=== PATIENT | male | born 1955 | race Two or more races ===

== ENCOUNTER → 2019-10-21 | Emergency (ER) | payer OTHER ==
[~2019-10-21] VITALS: Ht 162.6 cm; Wt 77.1 kg
[~2019-10-21] MED LIST: LIDOCAINE 1% HCL (LOCAL ANESTH.) INJ 20ML MDV IJ ONE; TETANUS-DIPTH-ACEL PERTUSSIS 0.5ML SYR Tdap IM ONE
[2019-10-21 09:14] VITALS: BP 154/82
== END | disposition home or self-care (01) ==
LOC: ER 08:46
DX: S61.213A Laceration without foreign body of left middle finger without damage to nail, initial encounter (principal); W29.8XXA Contact with other powered hand tools and household machinery, initial encounter; Y93.89 Activity, other specified; Y92.89 Other specified places as the place of occurrence of the external cause; Y99.8 Other external cause status
CPT/HCPCS: 12001; 90471; 90715; 99283; J2001

== ENCOUNTER 2020-03-09 12:47 | Inpatient (IN) | payer MEDICARE, OTHER ==
[~2020-03-09] VITALS: Ht 162.6 cm; Wt 62.2 kg
[2020-03-09] MEDS ORDERED: ACETAMINOPHEN 325 MG TAB PO ONE (13:30)
[2020-03-09] MEDS ORDERED: DexAMETHasone SOD PHOS 10MG/1ML VIAL INJ IV ONE (14:30)
[2020-03-09] MEDS ORDERED: SODIUM CHLORIDE 0.9% 500 ML IV ONE (14:30)
[2020-03-09] MEDS ORDERED: DOXYCYCLINE 100MG/250ML 250 ML IV ONE (14:30)
[2020-03-09] MEDS ORDERED: AZITHROMYCIN 500MG/ 250ML 250 ML IV ONE ×2 (14:45)
[2020-03-09 16:17] LABS: Basophils # (auto) 0 10 ^3/uL (0-0.2); Basophils % (auto) 0.2 % (0.0-2.0); Eosinophils # (auto) 0 10 ^3/uL (0-0.8); Hematocrit 40.8 % (41.0-53.0); Hemoglobin 14.1 g/dL (13.5-17.5); Lymphocytes % (auto) 16.4 % (10.0-50.0); Mean Corpuscular Hgb Conc. 34.4 g/dL (32.0-36.0); Mean Corpuscular Volume 95.8 fL (80.0-100.0); Monocytes # (auto) 0.5 10 ^3/uL (0-1.3); Monocytes % (auto) 7.8 % (0.0-12.0); Neutrophils # (auto) 4.6 10 ^3/uL (1.6-8.6); Neutrophils % (auto) 75.6 % (37.0-80.0); Nucleated Red Blood Cells % 0.1 %; Red Blood Cells 4.27 10^6/uL (4.5-5.90); Red Cell Distribution Width 13.3 % (11.8-14.3)
[2020-03-09 16:26] LABS: Alanine Aminotransferase 35 U/L (16-61); Albumin 3.1 g/dL (3.4-5.0); Anion Gap 9 (5-15); Aspartate Aminotransferase 47 U/L (15-37); Blood Urea Nitrogen 22 mg/dL (7-18); Calcium 8.1 mg/dL (8.5-10.1); Carbon Dioxide 21 mmol/L (21-32); Chloride 103 mmol/L (98-107); GFR African American 91 mL/min; GFR Non-African American 75 mL/min; Glucose 97 mg/dL (74-106); Magnesium 2.2 mg/dL (1.6-2.6); Potassium 3.9 mmol/L (3.5-5.1); Sodium 133 mmol/L (136-145)
[2020-03-09 16:31] LABS: Alkaline Phosphatase 101 U/L (45-117); Bilirubin, Total 0.4 mg/dL (0.2-1.0); Total Protein 7.5 g/dL (6.4-8.2)
[2020-03-09 17:08] LABS: INR 0.97 (0.9-1.15); Partial Thromboplastin Time 29.5 sec (23.0-31.2)
[2020-03-09] MEDS ORDERED: SODIUM CHLORIDE 0.9% 1,000 ML IV SCH (17:15)
[2020-03-09 18:00] LABS: Urine Bacteria FEW /hpf (None Seen); Urine Blood Negative /uL (Negative); Urine Hyaline Cast FEW /lpf (0 - 2); Urine Mucus FEW (None Seen); Urine Specific Gravity 1.011 (1.001-1.035); Urine WBC 1 /hpf (0 - 3)
[2020-03-09] MEDS: BUDESONIDE (INHALATION) 180 MCG IH IN SCH (22:00)
[2020-03-09] MEDS: ALBUTEROL SULF HFA 90MCG INH 200DOSE IN SCH (22:00)
[2020-03-09] MEDS ORDERED: DOXYCYCLINE 100 MG TAB/CAP PO SCH (22:00)
[2020-03-10 03:16] VITALS: BP 121/66
[2020-03-10] MEDS: ALBUTEROL SULF HFA 90MCG INH 200DOSE IN SCH ×3 (06:17→22:17)
[2020-03-10 06:38] LABS: Basophils # (auto) 0.1 10 ^3/uL (0-0.2); Basophils % (auto) 1.4 % (0.0-2.0); Eosinophils # (auto) 0 10 ^3/uL (0-0.8); Hematocrit 42.6 % (41.0-53.0); Hemoglobin 14.6 g/dL (13.5-17.5); Lymphocytes # (auto) 0.6 10 ^3/uL (0.4-5.4); Lymphocytes % (auto) 13.6 % (10.0-50.0); Mean Corpuscular Hemoglobin 33.1 pg (28.0-32.0); Mean Corpuscular Hgb Conc. 34.3 g/dL (32.0-36.0); Mean Corpuscular Volume 96.7 fL (80.0-100.0); Monocytes # (auto) 0.3 10 ^3/uL (0-1.3); Neutrophils # (auto) 3.4 10 ^3/uL (1.6-8.6); Red Blood Cells 4.41 10^6/uL (4.5-5.90); Red Cell Distribution Width 13.1 % (11.8-14.3); White Blood Cell 4.4 10^3/uL (4.4-10.8)
[2020-03-10 07:23] LABS: Albumin 2.9 g/dL (3.4-5.0); BUN/Creatinine Ratio 25.3; Bilirubin, Total 0.4 mg/dL (0.2-1.0); Calcium 8.8 mg/dL (8.5-10.1); Magnesium 2.5 mg/dL (1.6-2.6); Potassium 4.3 mmol/L (3.5-5.1); Total Protein 7.6 g/dL (6.4-8.2)
[2020-03-10] MEDS ORDERED: ENOXAPARIN SOD 40 MG/0.4 ML SYRINGE SC SCH (10:00)
[2020-03-10] MEDS: BUDESONIDE (INHALATION) 180 MCG IH IN SCH ×2 (10:10→22:18)
[2020-03-10] MEDS: DexAMETHasone SOD PHOS 10MG/1ML VIAL INJ IV SCH (11:25)
[2020-03-10] MEDS: CHOLECALCIFEROL (VITD3) 2,000 UNIT CAP/TAB PO SCH (11:28)
[2020-03-10] MEDS: FUROSEMIDE 20 MG/2 ML VIAL IV SCH (11:28)
[2020-03-10] MEDS: ASCORBIC ACID 1,000 MG TAB PO SCH (11:28)
[2020-03-10] MEDS: ZINC SULFATE 220mg CAP or TAB PO SCH (11:28)
[2020-03-10] MEDS ORDERED: DEXTROSE (50%) 50ML SYRG IV PRN (11:30)
[2020-03-10] MEDS ORDERED: ENOXAPARIN SOD 100 MG/1 ML SYRINGE SC ONE (11:30)
[2020-03-10] MEDS ORDERED: POTASSIUM CHL 10 Meq TABLET PO ONE (11:30)
[2020-03-10] MEDS ORDERED: FUROSEMIDE 20 MG/2 ML VIAL IV ONE (11:30)
[2020-03-10] MEDS: PIPERACILLIN-TAZOB 3.375GM 100 ML IV SCH ×2 (13:01→18:31)
[2020-03-10] MEDS: ACCU-CHEK COMFORT CURVE STRIP VI SCH ×3 (13:31→22:15)
[2020-03-10] MEDS: InsuLIN REG 1unit/0.01ml Soln (100units/ml) SC SCH ×3 (13:32→22:15)
[2020-03-10] MEDS ORDERED: IOHEXOL 350 MG/ML 100ML IJ ONE ×2 (15:41→23:46)
[2020-03-10 22:13] VITALS: BP 115/59
[2020-03-10] MEDS: ENOXAPARIN SOD 80 MG/0.8ML SYRINGE SC SCH (22:15)
[2020-03-10 22:28] VITALS: BP 108/57
[2020-03-10 23:28] VITALS: BP 111/58
[2020-03-11] MEDS: HYDROcodone-ACET 5/325MG TAB PO PRN ×2 (03:46→06:45)
[2020-03-11] MEDS: ALBUTEROL SULF HFA 90MCG INH 200DOSE IN SCH ×2 (06:00→14:00)
[2020-03-11] MEDS: PIPERACILLIN-TAZOB 3.375GM 100 ML IV SCH ×5 (06:30→23:54)
[2020-03-11] MEDS: InsuLIN REG 1unit/0.01ml Soln (100units/ml) SC SCH ×4 (07:00→22:00)
[2020-03-11] MEDS: ACCU-CHEK COMFORT CURVE STRIP VI SCH ×4 (07:15→23:53)
[2020-03-11 07:16] LABS: Potassium 4.3 mmol/L (3.5-5.1)
[2020-03-11 07:34] LABS: Albumin 2.9 g/dL (3.4-5.0); BUN/Creatinine Ratio 28.6; Bilirubin, Total 0.5 mg/dL (0.2-1.0); Calcium 8.6 mg/dL (8.5-10.1); Magnesium 2.4 mg/dL (1.6-2.6); Total Protein 7.4 g/dL (6.4-8.2)
[2020-03-11] MEDS: BUDESONIDE (INHALATION) 180 MCG IH IN SCH ×2 (10:00→22:00)
[2020-03-11] MEDS: FUROSEMIDE 20 MG/2 ML VIAL IV SCH (14:20)
[2020-03-11] MEDS: DexAMETHasone SOD PHOS 10MG/1ML VIAL INJ IV SCH (14:20)
[2020-03-11] MEDS: POTASSIUM CHL 10 Meq TABLET PO SCH (14:20)
[2020-03-11] MEDS: ZINC SULFATE 220mg CAP or TAB PO SCH (14:20)
[2020-03-11] MEDS: ASCORBIC ACID 1,000 MG TAB PO SCH (14:20)
[2020-03-11] MEDS: CHOLECALCIFEROL (VITD3) 2,000 UNIT CAP/TAB PO SCH (14:20)
[2020-03-11] MEDS: ENOXAPARIN SOD 80 MG/0.8ML SYRINGE SC SCH ×2 (14:21→23:53)
[2020-03-11 23:00] VITALS: BP 109/66
[2020-03-12] MEDS: ALBUTEROL SULF HFA 90MCG INH 200DOSE IN SCH ×3 (05:57→23:06)
[2020-03-12] MEDS: BUDESONIDE (INHALATION) 180 MCG IH IN SCH ×2 (05:58→23:06)
[2020-03-12 06:00] VITALS: BP 128/64
[2020-03-12] MEDS: InsuLIN REG 1unit/0.01ml Soln (100units/ml) SC SCH ×4 (06:11→22:00)
[2020-03-12] MEDS: PIPERACILLIN-TAZOB 3.375GM 100 ML IV SCH ×2 (06:11→12:21)
[2020-03-12] MEDS: ACCU-CHEK COMFORT CURVE STRIP VI SCH ×4 (06:12→22:24)
[2020-03-12] MEDS ORDERED: ALBUAER3 IN (08:17)
[2020-03-12] MEDS ORDERED: BUDE1AER5 IN (08:17)
[2020-03-12 08:27] LABS: Albumin 2.7 g/dL (3.4-5.0); BUN/Creatinine Ratio 38.8; Calcium 8.4 mg/dL (8.5-10.1); Potassium 3.7 mmol/L (3.5-5.1)
[2020-03-12 08:32] LABS: Bilirubin, Total 0.6 mg/dL (0.2-1.0); Total Protein 7.3 g/dL (6.4-8.2)
[2020-03-12] MEDS: ZINC SULFATE 220mg CAP or TAB PO SCH (09:02)
[2020-03-12] MEDS: DexAMETHasone SOD PHOS 10MG/1ML VIAL INJ IV SCH (09:02)
[2020-03-12] MEDS: CHOLECALCIFEROL (VITD3) 2,000 UNIT CAP/TAB PO SCH (09:02)
[2020-03-12] MEDS: ENOXAPARIN SOD 80 MG/0.8ML SYRINGE SC SCH (09:03)
[2020-03-12] MEDS: ASCORBIC ACID 1,000 MG TAB PO SCH (09:03)
[2020-03-12] MEDS: POTASSIUM CHL 10 Meq TABLET PO SCH (09:03)
[2020-03-12] MEDS: FUROSEMIDE 20 MG/2 ML VIAL IV SCH (09:04)
[2020-03-12] MEDS: ACETAMINOPHEN 500 MG TAB PO PRN ×2 (09:12→21:00)
[2020-03-12 09:18] VITALS: BP 118/70
[2020-03-12 13:00] VITALS: BP 107/67
[2020-03-12] MEDS: HYDROcodone-ACET 5/325MG TAB PO PRN (16:06)
[2020-03-12] MEDS: guaiFENesin-DM 100/10mg/5ml SYR PO PRN ×2 (16:07→21:00)
[2020-03-12 16:45] VITALS: BP 114/63
[2020-03-12] MEDS ORDERED: REMDESIVIR 200 MG in NS 210ml LOADING DOSE ADULT IV ONE (17:00)
[2020-03-12 18:28] VITALS: BP 118/70
[2020-03-12 22:00] VITALS: BP 118/66
[2020-03-13] MEDS: guaiFENesin-DM 100/10mg/5ml SYR PO PRN ×2 (03:11→08:39)
[2020-03-13] MEDS: ACETAMINOPHEN 500 MG TAB PO PRN (05:02)
[2020-03-13] MEDS: ACCU-CHEK COMFORT CURVE STRIP VI SCH ×4 (06:42→21:50)
[2020-03-13] MEDS: InsuLIN REG 1unit/0.01ml Soln (100units/ml) SC SCH ×4 (06:42→21:50)
[2020-03-13 06:43] VITALS: BP 116/59
[2020-03-13] MEDS: ALBUTEROL SULF HFA 90MCG INH 200DOSE IN SCH ×3 (07:55→21:31)
[2020-03-13] MEDS: BUDESONIDE (INHALATION) 180 MCG IH IN SCH ×2 (07:56→21:31)
[2020-03-13 09:23] VITALS: BP 111/79
[2020-03-13] MEDS ORDERED: ACETAMINOPHEN 325 MG TAB PO PRN (10:00)
[2020-03-13] MEDS: levoFLOXacin 750MG 150 ML IV SCH (10:17)
[2020-03-13] MEDS: FUROSEMIDE 20 MG/2 ML VIAL IV SCH (10:18)
[2020-03-13] MEDS: CHOLECALCIFEROL (VITD3) 2,000 UNIT CAP/TAB PO SCH (10:18)
[2020-03-13] MEDS: ENOXAPARIN SOD 40 MG/0.4 ML SYRINGE SC SCH (10:18)
[2020-03-13] MEDS: POTASSIUM CHL 10 Meq TABLET PO SCH (10:18)
[2020-03-13] MEDS: ASCORBIC ACID 1,000 MG TAB PO SCH (10:19)
[2020-03-13] MEDS: MORPHINE SULFATE INJECTION 2 MG/ML SYRG IV PRN ×2 (10:19→20:00)
[2020-03-13] MEDS: ZINC SULFATE 220mg CAP or TAB PO SCH (10:19)
[2020-03-13] MEDS: DexAMETHasone SOD PHOS 10MG/1ML VIAL INJ IV SCH (10:20)
[2020-03-13 10:21] LABS: Basophils # (auto) 0 10 ^3/uL (0-0.2); Basophils % (auto) 0.1 % (0.0-2.0); Eosinophils # (auto) 0 10 ^3/uL (0-0.8); Hematocrit 40.2 % (41.0-53.0); Hemoglobin 13.4 g/dL (13.5-17.5); Lymphocytes # (auto) 0.8 10 ^3/uL (0.4-5.4); Lymphocytes % (auto) 7.1 % (10.0-50.0); Mean Corpuscular Hemoglobin 32.2 pg (28.0-32.0); Mean Corpuscular Hgb Conc. 33.4 g/dL (32.0-36.0); Mean Corpuscular Volume 96.5 fL (80.0-100.0); Monocytes # (auto) 0.4 10 ^3/uL (0-1.3); Monocytes % (auto) 3.3 % (0.0-12.0); Neutrophils # (auto) 9.5 10 ^3/uL (1.6-8.6); Neutrophils % (auto) 89.5 % (37.0-80.0); Red Blood Cells 4.17 10^6/uL (4.5-5.90); Red Cell Distribution Width 13.5 % (11.8-14.3); White Blood Cell 10.6 10^3/uL (4.4-10.8)
[2020-03-13 10:37] LABS: Calcium 8.6 mg/dL (8.5-10.1); Potassium 3.7 mmol/L (3.5-5.1)
[2020-03-13 10:43] LABS: Albumin 2.8 g/dL (3.4-5.0); Bilirubin, Total 0.6 mg/dL (0.2-1.0); Total Protein 7.2 g/dL (6.4-8.2)
[2020-03-13 12:14] VITALS: BP 116/64
[2020-03-13] MEDS: REMDESIVIR 100mg in NS 230ml DAILYx4DAYS (NO VENT) IV SCH (17:01)
[2020-03-13] MEDS: guaiFENesin-CODEINE Liq 5 ML UD PO PRN (19:59)
[2020-03-13 20:00] VITALS: BP 120/65
[2020-03-14] MEDS: guaiFENesin-CODEINE Liq 5 ML UD PO PRN ×4 (02:19→20:49)
[2020-03-14 03:32] VITALS: BP 120/65
[2020-03-14 05:00] VITALS: BP 120/51
[2020-03-14] MEDS: ALBUTEROL SULF HFA 90MCG INH 200DOSE IN SCH ×3 (06:06→21:58)
[2020-03-14] MEDS: BUDESONIDE (INHALATION) 180 MCG IH IN SCH ×2 (06:06→21:58)
[2020-03-14] MEDS: ACCU-CHEK COMFORT CURVE STRIP VI SCH (06:17)
[2020-03-14] MEDS: InsuLIN REG 1unit/0.01ml Soln (100units/ml) SC SCH (06:17)
[2020-03-14] MEDS: HYDROcodone-ACET 5/325MG TAB PO PRN ×4 (06:18→20:09)
[2020-03-14 06:20] LABS: Basophils # (auto) 0 10 ^3/uL (0-0.2); Basophils % (auto) 0.3 % (0.0-2.0); Eosinophils # (auto) 0 10 ^3/uL (0-0.8); Hematocrit 42.9 % (41.0-53.0); Hemoglobin 14.3 g/dL (13.5-17.5); Lymphocytes # (auto) 0.6 10 ^3/uL (0.4-5.4); Lymphocytes % (auto) 5.5 % (10.0-50.0); Mean Corpuscular Hemoglobin 32.1 pg (28.0-32.0); Mean Corpuscular Hgb Conc. 33.4 g/dL (32.0-36.0); Mean Corpuscular Volume 96.2 fL (80.0-100.0); Monocytes # (auto) 0.4 10 ^3/uL (0-1.3); Neutrophils # (auto) 9.4 10 ^3/uL (1.6-8.6); Neutrophils % (auto) 90.2 % (37.0-80.0); Red Blood Cells 4.46 10^6/uL (4.5-5.90); Red Cell Distribution Width 13.1 % (11.8-14.3); White Blood Cell 10.4 10^3/uL (4.4-10.8)
[2020-03-14 06:51] LABS: Albumin 2.9 g/dL (3.4-5.0); BUN/Creatinine Ratio 38.5; Bilirubin, Total 0.8 mg/dL (0.2-1.0); Calcium 8.9 mg/dL (8.5-10.1); Total Protein 7.5 g/dL (6.4-8.2)
[2020-03-14 08:00] VITALS: BP 111/79
[2020-03-14 09:00] VITALS: BP 114/67
[2020-03-14] MEDS: DexAMETHasone SOD PHOS 10MG/1ML VIAL INJ IV SCH (09:53)
[2020-03-14] MEDS: FUROSEMIDE 20 MG/2 ML VIAL IV SCH (09:55)
[2020-03-14] MEDS: ZINC SULFATE 220mg CAP or TAB PO SCH (09:56)
[2020-03-14] MEDS: ASCORBIC ACID 1,000 MG TAB PO SCH (09:56)
[2020-03-14] MEDS: levoFLOXacin 750MG 150 ML IV SCH (09:56)
[2020-03-14] MEDS: POTASSIUM CHL 10 Meq TABLET PO SCH (09:56)
[2020-03-14] MEDS: CHOLECALCIFEROL (VITD3) 2,000 UNIT CAP/TAB PO SCH (09:56)
[2020-03-14] MEDS: ENOXAPARIN SOD 40 MG/0.4 ML SYRINGE SC SCH (09:57)
[2020-03-14 17:00] VITALS: BP 113/72
[2020-03-14] MEDS: REMDESIVIR 100mg in NS 230ml DAILYx4DAYS (NO VENT) IV SCH (17:00)
[2020-03-14 21:35] VITALS: BP 120/68
[2020-03-15] VITALS (7 sets, daily range): BP systolic 89–127; BP diastolic 52–103
[2020-03-15] MEDS: LORazepam 2MG/ML-1ML VIAL IV PRN ×3 (01:08→21:31)
[2020-03-15] MEDS: ALBUTEROL SULF HFA 90MCG INH 200DOSE IN SCH ×3 (07:10→22:09)
[2020-03-15] MEDS: BUDESONIDE (INHALATION) 180 MCG IH IN SCH ×2 (07:10→22:09)
[2020-03-15] MEDS: ASCORBIC ACID 1,000 MG TAB PO SCH (10:00)
[2020-03-15] MEDS: POTASSIUM CHL 10 Meq TABLET PO SCH (10:00)
[2020-03-15] MEDS: CHOLECALCIFEROL (VITD3) 2,000 UNIT CAP/TAB PO SCH (10:00)
[2020-03-15] MEDS: DexAMETHasone SOD PHOS 10MG/1ML VIAL INJ IV SCH (10:06)
[2020-03-15] MEDS: FUROSEMIDE 20 MG/2 ML VIAL IV SCH (10:06)
[2020-03-15] MEDS: levoFLOXacin 750MG 150 ML IV SCH (10:06)
[2020-03-15] MEDS: ZINC SULFATE 220mg CAP or TAB PO SCH (10:07)
[2020-03-15] MEDS: ENOXAPARIN SOD 40 MG/0.4 ML SYRINGE SC SCH (10:07)
[2020-03-15] MEDS: guaiFENesin-CODEINE Liq 5 ML UD PO PRN ×2 (10:16→15:56)
[2020-03-15] MEDS: HYDROcodone-ACET 5/325MG TAB PO PRN ×2 (10:16→15:56)
[2020-03-15] MEDS: PIPERACILLIN-TAZOB 3.375GM 100 ML IV SCH ×2 (12:00→18:00)
[2020-03-15] MEDS ORDERED: ENOXAPARIN SOD 30 MG/0.3 ML SYRINGE SC ONE (12:15)
[2020-03-15] MEDS: REMDESIVIR 100mg in NS 230ml DAILYx4DAYS (NO VENT) IV SCH (17:19)
[2020-03-15] MEDS: ENOXAPARIN SOD 80 MG/0.8ML SYRINGE SC SCH (21:30)
[2020-03-16] VITALS (55 sets, daily range): BP systolic 57–149; BP diastolic 36–80
[2020-03-16] MEDS: guaiFENesin-CODEINE Liq 5 ML UD PO PRN (00:05)
[2020-03-16] MEDS: PIPERACILLIN-TAZOB 3.375GM 100 ML IV SCH ×4 (00:06→17:46)
[2020-03-16] MEDS: LORazepam 2MG/ML-1ML VIAL IV PRN (03:02)
[2020-03-16] MEDS: MORPHINE SULFATE INJECTION 2 MG/ML SYRG IV PRN (05:19)
[2020-03-16] MEDS: ALBUTEROL SULF HFA 90MCG INH 200DOSE IN SCH (06:00)
[2020-03-16] MEDS: MIDAZOLAM DRIP 50 mg/50mL 50 ML IV SCH ×3 (06:15→21:45)
[2020-03-16] MEDS: PROPOFOL 100 ML IV SCH ×3 (06:20→22:55)
[2020-03-16] MEDS ORDERED: PROPOFOL 100 ML IV ONE ×2 (06:20)
[2020-03-16] MEDS ORDERED: NOREPINEPHRINE 8 MG/250ML KIT 250 ML IV ONE (06:38)
[2020-03-16] MEDS: NOREPINEPHRINE 8 MG/250ML KIT 250 ML IV SCH (06:45)
[2020-03-16 07:51] LABS: Basophils # (auto) 0 10 ^3/uL (0-0.2); Basophils % (auto) 0.3 % (0.0-2.0); Eosinophils # (auto) 0 10 ^3/uL (0-0.8); Eosinophils % (auto) 0.1 % (0.0-7.0); Hematocrit 45.2 % (41.0-53.0); Hemoglobin 15.2 g/dL (13.5-17.5); Lymphocytes # (auto) 0.5 10 ^3/uL (0.4-5.4); Mean Corpuscular Hgb Conc. 33.6 g/dL (32.0-36.0); Monocytes # (auto) 0.2 10 ^3/uL (0-1.3); Monocytes % (auto) 2.8 % (0.0-12.0); Neutrophils # (auto) 7.9 10 ^3/uL (1.6-8.6); Neutrophils % (auto) 90.8 % (37.0-80.0); Red Blood Cells 4.62 10^6/uL (4.5-5.90); Red Cell Distribution Width 13.5 % (11.8-14.3); White Blood Cell 8.7 10^3/uL (4.4-10.8)
[2020-03-16] MEDS ORDERED: fentaNYL Drip 2500mCg/250mlNS 250 ML IV ONE (08:10)
[2020-03-16 08:14] LABS: Potassium 4.3 mmol/L (3.5-5.1)
[2020-03-16 08:29] LABS: Albumin 2.6 g/dL (3.4-5.0); BUN/Creatinine Ratio 33.9; Bilirubin, Total 0.8 mg/dL (0.2-1.0); Calcium 8.5 mg/dL (8.5-10.1); Total Protein 7.5 g/dL (6.4-8.2)
[2020-03-16] MEDS: fentaNYL Drip 2500mCg/250mlNS 250 ML IV SCH ×2 (10:00→21:00)
[2020-03-16] MEDS: FUROSEMIDE 20 MG/2 ML VIAL IV SCH ×2 (10:00→12:19)
[2020-03-16] MEDS: BUDESONIDE (INHALATION) 180 MCG IH IN SCH (10:00)
[2020-03-16] MEDS: POTASSIUM CHL 10 Meq TABLET PO SCH (10:00)
[2020-03-16] MEDS ORDERED: ALBUTEROL SULF 2.5 MG/0.5ML(0.5%) NEB SOLN ONE (11:22)
[2020-03-16] MEDS ORDERED: ALBUTEROL SULF 2.5 MG/0.5ML(0.5%) NEB SOLN NEB ONE (11:45)
[2020-03-16 11:54] LABS: Urine Bacteria NONE SEEN /hpf (None Seen); Urine Blood Negative /uL (Negative); Urine Mucus FEW (None Seen); Urine Specific Gravity 1.026 (1.001-1.035); Urine WBC 3 /hpf (0 - 3)
[2020-03-16] MEDS: DexAMETHasone SOD PHOS 10MG/1ML VIAL INJ IV SCH (12:18)
[2020-03-16] MEDS: ASCORBIC ACID 1,000 MG TAB PO SCH (12:19)
[2020-03-16] MEDS: ZINC SULFATE 220mg CAP or TAB PO SCH (12:19)
[2020-03-16] MEDS: ENOXAPARIN SOD 80 MG/0.8ML SYRINGE SC SCH ×2 (12:19→23:00)
[2020-03-16] MEDS ORDERED: AZITHROMYCIN 500MG/ 250ML 250 ML IV ONE (13:00)
[2020-03-16] MEDS ORDERED: FAMOTIDINE INJECTION 40 MG in SODIUM CHL 0.9% 100 ML IV ONE (13:00)
[2020-03-16] MEDS ORDERED: ALBUTEROL SULF 2.5 MG/0.5ML(0.5%) NEB SOLN NEB PRN (13:15)
[2020-03-16] MEDS: CHOLECALCIFEROL (VITD3) 2,000 UNIT CAP/TAB PO SCH (15:04)
[2020-03-16] MEDS ORDERED: LIDOCAINE 1% (LOCAL ANESTH.) PF 5ml SDV ID ONE (15:15)
[2020-03-16] MEDS: REMDESIVIR 100mg in NS 230ml DAILYx4DAYS (NO VENT) IV SCH (17:35)
[2020-03-16] MEDS: ALBUTEROL SULF 2.5 MG/0.5ML(0.5%) NEB SOLN NEB SCH ×4 (18:00→22:46)
[2020-03-16] MEDS: BUDESONIDE (INHALATION) 0.5 MG/2 ML NEB NEB SCH ×2 (21:50→22:46)
[2020-03-16] MEDS: SODIUM CHLOR 0.9% PF (SALINE LOCK) 10ML VIAL/SYR IV SCH (23:00)
[2020-03-16] MEDS: FAMOTIDINE (10MG/ML) 2ML VL IV SCH (23:00)
[2020-03-16 23:56] LABS: INR 1.13 (0.9-1.15); Partial Thromboplastin Time 31.5 sec (23.0-31.2)
[2020-03-17] VITALS (100 sets, daily range): BP systolic 98–141; BP diastolic 47–74
[2020-03-17] MEDS: PIPERACILLIN-TAZOB 3.375GM 100 ML IV SCH ×3 (00:30→13:41)
[2020-03-17] MEDS: ALBUTEROL SULF 2.5 MG/0.5ML(0.5%) NEB SOLN NEB SCH ×5 (02:06→22:19)
[2020-03-17] MEDS: MIDAZOLAM DRIP 50 mg/50mL 50 ML IV SCH ×2 (02:23→13:43)
[2020-03-17] MEDS: PROPOFOL 100 ML IV SCH ×4 (03:30→20:07)
[2020-03-17] MEDS: NOREPINEPHRINE 8 MG/250ML KIT 250 ML IV SCH (06:45)
[2020-03-17] MEDS: AZITHROMYCIN 500MG/ 250ML 250 ML IV SCH (08:20)
[2020-03-17] MEDS: CHOLECALCIFEROL (VITD3) 2,000 UNIT CAP/TAB PO SCH (08:21)
[2020-03-17] MEDS: ZINC SULFATE 220mg CAP or TAB PO SCH (08:21)
[2020-03-17] MEDS: FAMOTIDINE (10MG/ML) 2ML VL IV SCH ×2 (08:21→22:10)
[2020-03-17] MEDS: FUROSEMIDE 20 MG/2 ML VIAL IV SCH (08:22)
[2020-03-17] MEDS: DexAMETHasone SOD PHOS 10MG/1ML VIAL INJ IV SCH ×2 (08:22→22:11)
[2020-03-17] MEDS: ENOXAPARIN SOD 80 MG/0.8ML SYRINGE SC SCH ×2 (08:22→22:09)
[2020-03-17] MEDS: ASCORBIC ACID 1,000 MG TAB PO SCH (08:22)
[2020-03-17] MEDS: SODIUM CHLOR 0.9% PF (SALINE LOCK) 10ML VIAL/SYR IV SCH ×2 (08:22→22:11)
[2020-03-17] MEDS: fentaNYL Drip 2500mCg/250mlNS 250 ML IV SCH ×2 (08:25→20:08)
[2020-03-17] MEDS ORDERED: FAMOTIDINE INJECTION 40 MG in SODIUM CHL 0.9% 100 ML IV SCH (10:00)
[2020-03-17] MEDS ORDERED: POTASSIUM EFFERVESENT TAB 25 MEQ GT ONE (10:45)
[2020-03-17] MEDS ORDERED: Jevity 1.2 Cal/Fiber 1 Liter GT SCH (10:45)
[2020-03-17 10:59] LABS: Albumin 2.1 g/dL (3.4-5.0); Anion Gap 7 (5-15); Blood Urea Nitrogen 46 mg/dL (7-18); Calcium 7.8 mg/dL (8.5-10.1); Carbon Dioxide 25 mmol/L (21-32); Chloride 99 mmol/L (98-107); Glucose 156 mg/dL (74-106); Potassium 5.2 mmol/L (3.5-5.1); Sodium 131 mmol/L (136-145)
[2020-03-17 11:09] LABS: Basophils # (auto) 0 10 ^3/uL (0-0.2); Basophils % (auto) 0.2 % (0.0-2.0); Eosinophils # (auto) 0 10 ^3/uL (0-0.8); Lymphocytes # (auto) 0.2 10 ^3/uL (0.4-5.4); Lymphocytes % (auto) 2.3 % (10.0-50.0); Mean Corpuscular Hemoglobin 32.9 pg (28.0-32.0); Mean Corpuscular Hgb Conc. 33.2 g/dL (32.0-36.0); Mean Corpuscular Volume 98.9 fL (80.0-100.0); Monocytes # (auto) 0.2 10 ^3/uL (0-1.3); Monocytes % (auto) 3.3 % (0.0-12.0); Neutrophils # (auto) 6.5 10 ^3/uL (1.6-8.6); Neutrophils % (auto) 94.2 % (37.0-80.0); Nucleated Red Blood Cells % 0.1 %; Red Blood Cells 3.95 10^6/uL (4.5-5.90); Red Cell Distribution Width 13.6 % (11.8-14.3); White Blood Cell 6.9 10^3/uL (4.4-10.8)
[2020-03-17 11:14] LABS: Alkaline Phosphatase 127 U/L (45-117); Aspartate Aminotransferase 44 U/L (15-37); BUN/Creatinine Ratio 36.5; Bilirubin, Total 0.7 mg/dL (0.2-1.0); GFR African American 73 mL/min; GFR Non-African American 61 mL/min; Total Protein 6.9 g/dL (6.4-8.2)
[2020-03-17 11:31] LABS: CRP High Sensitivity > 19.0 mg/dL (< 0.3)
[2020-03-17 12:16] LABS: Alanine Aminotransferase 27 U/L (16-61)
[2020-03-17] MEDS: PIPERACILLIN-TAZOB 2.25GM 50 ML IV SCH ×2 (17:04→23:47)
[2020-03-17 17:30] LABS: Albumin 2.1 g/dL (3.4-5.0); BUN/Creatinine Ratio 34.8; Calcium 7.4 mg/dL (8.5-10.1)
[2020-03-17 17:43] LABS: Bilirubin, Total 0.7 mg/dL (0.2-1.0); Total Protein 6.9 g/dL (6.4-8.2)
[2020-03-17] MEDS: BUDESONIDE (INHALATION) 0.5 MG/2 ML NEB NEB SCH (18:29)
[2020-03-18] VITALS (96 sets, daily range): BP systolic 105–147; BP diastolic 54–74
[2020-03-18] MEDS: MIDAZOLAM DRIP 50 mg/50mL 50 ML IV SCH ×3 (00:32→15:40)
[2020-03-18] MEDS: PROPOFOL 100 ML IV SCH ×3 (00:37→15:39)
[2020-03-18] MEDS: ALBUTEROL SULF 2.5 MG/0.5ML(0.5%) NEB SOLN NEB SCH ×6 (02:59→22:46)
[2020-03-18] MEDS: BUDESONIDE (INHALATION) 0.5 MG/2 ML NEB NEB SCH ×2 (06:00→22:46)
[2020-03-18] MEDS: PIPERACILLIN-TAZOB 2.25GM 50 ML IV SCH ×3 (06:31→18:00)
[2020-03-18] MEDS: fentaNYL Drip 2500mCg/250mlNS 250 ML IV SCH (06:32)
[2020-03-18] MEDS: NOREPINEPHRINE 8 MG/250ML KIT 250 ML IV SCH (06:45)
[2020-03-18] MEDS: SODIUM CHLOR 0.9% PF (SALINE LOCK) 10ML VIAL/SYR IV SCH ×2 (10:00→22:16)
[2020-03-18] MEDS ORDERED: POTASSIUM EFFERVESENT TAB 25 MEQ GT SCH (10:00)
[2020-03-18] MEDS: DexAMETHasone SOD PHOS 10MG/1ML VIAL INJ IV SCH ×2 (10:12→22:17)
[2020-03-18] MEDS: FUROSEMIDE 20 MG/2 ML VIAL IV SCH (10:13)
[2020-03-18] MEDS: ZINC SULFATE 220mg CAP or TAB PO SCH (10:13)
[2020-03-18] MEDS: FAMOTIDINE (10MG/ML) 2ML VL IV SCH ×2 (10:13→22:16)
[2020-03-18] MEDS: AZITHROMYCIN 500MG/ 250ML 250 ML IV SCH (10:13)
[2020-03-18] MEDS: ASCORBIC ACID 1,000 MG TAB PO SCH (10:14)
[2020-03-18] MEDS: CHOLECALCIFEROL (VITD3) 2,000 UNIT CAP/TAB PO SCH (10:14)
[2020-03-18] MEDS: ENOXAPARIN SOD 80 MG/0.8ML SYRINGE SC SCH ×2 (10:14→22:17)
[2020-03-19] VITALS (100 sets, daily range): BP systolic 108–148; BP diastolic 59–76
[2020-03-19] MEDS: ALBUTEROL SULF 2.5 MG/0.5ML(0.5%) NEB SOLN NEB SCH ×6 (02:10→22:36)
[2020-03-19] MEDS: MIDAZOLAM DRIP 50 mg/50mL 50 ML IV SCH ×3 (02:17→23:54)
[2020-03-19] MEDS: BUDESONIDE (INHALATION) 0.5 MG/2 ML NEB NEB SCH ×2 (06:22→22:36)
[2020-03-19 06:37] LABS: Potassium 4.4 mmol/L (3.5-5.1)
[2020-03-19 06:45] LABS: Albumin 2.2 g/dL (3.4-5.0); BUN/Creatinine Ratio 49.6; Bilirubin, Total 0.3 mg/dL (0.2-1.0); Calcium 8.3 mg/dL (8.5-10.1); Total Protein 6.8 g/dL (6.4-8.2)
[2020-03-19] MEDS: PIPERACILLIN-TAZOB 2.25GM 50 ML IV SCH ×5 (06:52→23:54)
[2020-03-19] MEDS: fentaNYL Drip 2500mCg/250mlNS 250 ML IV SCH ×2 (08:15→23:54)
[2020-03-19] MEDS: DexAMETHasone SOD PHOS 10MG/1ML VIAL INJ IV SCH ×2 (09:53→22:22)
[2020-03-19] MEDS: FAMOTIDINE (10MG/ML) 2ML VL IV SCH ×2 (09:54→22:21)
[2020-03-19] MEDS: FUROSEMIDE 20 MG/2 ML VIAL IV SCH (09:54)
[2020-03-19] MEDS: ASCORBIC ACID 1,000 MG TAB PO SCH (09:54)
[2020-03-19] MEDS: ZINC SULFATE 220mg CAP or TAB PO SCH (09:54)
[2020-03-19] MEDS: AZITHROMYCIN 500MG/ 250ML 250 ML IV SCH (09:54)
[2020-03-19] MEDS: ENOXAPARIN SOD 80 MG/0.8ML SYRINGE SC SCH ×2 (09:55→22:22)
[2020-03-19] MEDS: CHOLECALCIFEROL (VITD3) 2,000 UNIT CAP/TAB PO SCH (09:55)
[2020-03-19] MEDS: SODIUM CHLOR 0.9% PF (SALINE LOCK) 10ML VIAL/SYR IV SCH ×2 (09:55→22:22)
[2020-03-19] MEDS: LACTULOSE 20Gm/30ML SOLN PO PRN (22:21)
[2020-03-20] VITALS (100 sets, daily range): BP systolic 109–167; BP diastolic 59–83
[2020-03-20] MEDS: ALBUTEROL SULF 2.5 MG/0.5ML(0.5%) NEB SOLN NEB SCH ×5 (01:37→22:02)
[2020-03-20] MEDS: MIDAZOLAM DRIP 50 mg/50mL 50 ML IV SCH (05:00)
[2020-03-20] MEDS: METOCLOPRAMIDE HCL 5MG/ml INJ 2ml VIAL IV SCH ×3 (06:00→23:14)
[2020-03-20] MEDS: PIPERACILLIN-TAZOB 2.25GM 50 ML IV SCH ×3 (06:15→17:44)
[2020-03-20] MEDS: PROPOFOL 100 ML IV SCH (06:30)
[2020-03-20 06:49] LABS: Basophils # (auto) 0 10 ^3/uL (0-0.2); Basophils % (auto) 0.1 % (0.0-2.0); Eosinophils # (auto) 0 10 ^3/uL (0-0.8); Hematocrit 39.1 % (41.0-53.0); Hemoglobin 12.8 g/dL (13.5-17.5); Lymphocytes # (auto) 0.3 10 ^3/uL (0.4-5.4); Lymphocytes % (auto) 3.4 % (10.0-50.0); Mean Corpuscular Hemoglobin 32.4 pg (28.0-32.0); Mean Corpuscular Hgb Conc. 32.7 g/dL (32.0-36.0); Mean Corpuscular Volume 98.9 fL (80.0-100.0); Monocytes # (auto) 0.6 10 ^3/uL (0-1.3); Monocytes % (auto) 8.3 % (0.0-12.0); Neutrophils # (auto) 6.7 10 ^3/uL (1.6-8.6); Neutrophils % (auto) 88.2 % (37.0-80.0); Red Blood Cells 3.95 10^6/uL (4.5-5.90); Red Cell Distribution Width 13.6 % (11.8-14.3); White Blood Cell 7.6 10^3/uL (4.4-10.8)
[2020-03-20 07:10] LABS: Calcium 8.5 mg/dL (8.5-10.1); Magnesium 3.9 mg/dL (1.6-2.6); Potassium 4.8 mmol/L (3.5-5.1)
[2020-03-20] MEDS: BUDESONIDE (INHALATION) 0.5 MG/2 ML NEB NEB SCH ×2 (07:20→22:02)
[2020-03-20 07:21] LABS: BUN/Creatinine Ratio 59.7; CRP High Sensitivity 2.2 mg/dL (< 0.3)
[2020-03-20] MEDS: DexAMETHasone SOD PHOS 10MG/1ML VIAL INJ IV SCH ×2 (11:22→23:13)
[2020-03-20] MEDS: FAMOTIDINE (10MG/ML) 2ML VL IV SCH ×2 (11:22→23:13)
[2020-03-20] MEDS: ZINC SULFATE 220mg CAP or TAB PO SCH (11:22)
[2020-03-20] MEDS: ASCORBIC ACID 1,000 MG TAB PO SCH (11:22)
[2020-03-20] MEDS: FUROSEMIDE 20 MG/2 ML VIAL IV SCH (11:22)
[2020-03-20] MEDS: SODIUM CHLOR 0.9% PF (SALINE LOCK) 10ML VIAL/SYR IV SCH ×2 (11:23→23:14)
[2020-03-20] MEDS: ENOXAPARIN SOD 80 MG/0.8ML SYRINGE SC SCH ×2 (11:23→22:00)
[2020-03-20] MEDS: CHOLECALCIFEROL (VITD3) 2,000 UNIT CAP/TAB PO SCH (11:23)
[2020-03-21] VITALS (95 sets, daily range): BP systolic 123–163; BP diastolic 73–97
[2020-03-21] MEDS: PIPERACILLIN-TAZOB 2.25GM 50 ML IV SCH ×4 (00:16→18:11)
[2020-03-21 06:05] LABS: Basophils # (auto) 0 10 ^3/uL (0-0.2); Basophils % (auto) 0.1 % (0.0-2.0); Eosinophils # (auto) 0 10 ^3/uL (0-0.8); Hematocrit 39.1 % (41.0-53.0); Hemoglobin 13.1 g/dL (13.5-17.5); Lymphocytes # (auto) 0.4 10 ^3/uL (0.4-5.4); Lymphocytes % (auto) 4.7 % (10.0-50.0); Mean Corpuscular Hemoglobin 32.7 pg (28.0-32.0); Mean Corpuscular Hgb Conc. 33.4 g/dL (32.0-36.0); Mean Corpuscular Volume 97.7 fL (80.0-100.0); Monocytes # (auto) 0.6 10 ^3/uL (0-1.3); Monocytes % (auto) 8.5 % (0.0-12.0); Neutrophils # (auto) 6.5 10 ^3/uL (1.6-8.6); Neutrophils % (auto) 86.7 % (37.0-80.0); Nucleated Red Blood Cells % 0.3 %; Red Cell Distribution Width 13.3 % (11.8-14.3); White Blood Cell 7.5 10^3/uL (4.4-10.8)
[2020-03-21] MEDS: BUDESONIDE (INHALATION) 0.5 MG/2 ML NEB NEB SCH ×2 (06:10→22:54)
[2020-03-21] MEDS: ALBUTEROL SULF 2.5 MG/0.5ML(0.5%) NEB SOLN NEB SCH ×3 (06:10→22:54)
[2020-03-21] MEDS: METOCLOPRAMIDE HCL 5MG/ml INJ 2ml VIAL IV SCH ×3 (06:17→22:41)
[2020-03-21 06:21] LABS: INR 1.09 (0.9-1.15); Partial Thromboplastin Time 24.6 sec (23.0-31.2)
[2020-03-21 06:23] LABS: BUN/Creatinine Ratio 62.7; Calcium 8.1 mg/dL (8.5-10.1); Magnesium 3.6 mg/dL (1.6-2.6); Potassium 4.8 mmol/L (3.5-5.1)
[2020-03-21] MEDS: PROPOFOL 100 ML IV SCH (06:30)
[2020-03-21] MEDS: DexAMETHasone SOD PHOS 10MG/1ML VIAL INJ IV SCH (09:21)
[2020-03-21] MEDS: MIDAZOLAM DRIP 50 mg/50mL 50 ML IV SCH ×2 (09:21→18:11)
[2020-03-21] MEDS: ASCORBIC ACID 1,000 MG TAB PO SCH (09:22)
[2020-03-21] MEDS: FAMOTIDINE (10MG/ML) 2ML VL IV SCH ×2 (09:22→22:41)
[2020-03-21] MEDS: ZINC SULFATE 220mg CAP or TAB PO SCH (09:22)
[2020-03-21] MEDS: FUROSEMIDE 20 MG/2 ML VIAL IV SCH (09:22)
[2020-03-21] MEDS: SODIUM CHLOR 0.9% PF (SALINE LOCK) 10ML VIAL/SYR IV SCH ×2 (09:22→22:00)
[2020-03-21] MEDS: CHOLECALCIFEROL (VITD3) 2,000 UNIT CAP/TAB PO SCH (09:23)
[2020-03-21] MEDS: ENOXAPARIN SOD 80 MG/0.8ML SYRINGE SC SCH ×2 (09:23→22:41)
[2020-03-21] MEDS: fentaNYL Drip 2500mCg/250mlNS 250 ML IV SCH ×2 (10:45→18:12)
[2020-03-21] MEDS: ACETAMINOPHEN 650 mg PER 20.3 mL UD GT PRN (16:10)
[2020-03-22] VITALS (100 sets, daily range): BP systolic 108–145; BP diastolic 61–89
[2020-03-22] MEDS: PIPERACILLIN-TAZOB 2.25GM 50 ML IV SCH ×3 (00:12→12:01)
[2020-03-22] MEDS: METOCLOPRAMIDE HCL 5MG/ml INJ 2ml VIAL IV SCH ×3 (06:04→21:55)
[2020-03-22] MEDS: ALBUTEROL SULF 2.5 MG/0.5ML(0.5%) NEB SOLN NEB SCH ×3 (06:15→22:39)
[2020-03-22 06:21] LABS: Magnesium 3.8 mg/dL (1.6-2.6); Potassium 4.7 mmol/L (3.5-5.1)
[2020-03-22] MEDS: BUDESONIDE (INHALATION) 0.5 MG/2 ML NEB NEB SCH (06:21)
[2020-03-22 06:25] LABS: BUN/Creatinine Ratio 72.5; Calcium 8.6 mg/dL (8.5-10.1)
[2020-03-22] MEDS: PROPOFOL 100 ML IV SCH (06:30)
[2020-03-22] MEDS: MIDAZOLAM DRIP 50 mg/50mL 50 ML IV SCH ×4 (07:24→22:42)
[2020-03-22 07:58] LABS: Hematocrit 42.5 % (41.0-53.0); Hemoglobin 13.6 g/dL (13.5-17.5); Mean Corpuscular Hgb Conc. 32.1 g/dL (32.0-36.0); Mean Corpuscular Volume 99.7 fL (80.0-100.0); Red Blood Cells 4.26 10^6/uL (4.5-5.90); Red Cell Distribution Width 13.7 % (11.8-14.3); White Blood Cell 9.1 10^3/uL (4.4-10.8)
[2020-03-22 08:18] LABS: Band Neutrophils % (manual) 0; Basophils % (manual) 0 (0.0-2.0); Blast Cells 0; Eosinophils % (manual) 0 (0-7); Myelocytes % 0; Promyelocytes % 0; Reactive Lymphocytes 0
[2020-03-22 08:55] LABS: Lymphocytes % (manual) 9 (10.0-50.0); Metamyelocytes % 2; Monocytes % (manual) 8 (0-12)
[2020-03-22] MEDS: fentaNYL Drip 2500mCg/250mlNS 250 ML IV SCH ×2 (09:54→22:42)
[2020-03-22] MEDS: FAMOTIDINE (10MG/ML) 2ML VL IV SCH ×2 (09:54→21:55)
[2020-03-22] MEDS: SODIUM CHLOR 0.9% PF (SALINE LOCK) 10ML VIAL/SYR IV SCH ×2 (09:54→21:55)
[2020-03-22] MEDS: DexAMETHasone SOD PHOS 10MG/1ML VIAL INJ IV SCH (09:54)
[2020-03-22] MEDS: FUROSEMIDE 20 MG/2 ML VIAL IV SCH (09:54)
[2020-03-22] MEDS: CHOLECALCIFEROL (VITD3) 2,000 UNIT CAP/TAB PO SCH (09:55)
[2020-03-22] MEDS: ENOXAPARIN SOD 80 MG/0.8ML SYRINGE SC SCH ×2 (09:55→21:56)
[2020-03-22] MEDS: ASCORBIC ACID 1,000 MG TAB PO SCH (09:55)
[2020-03-22] MEDS: ZINC SULFATE 220mg CAP or TAB PO SCH (09:55)
[2020-03-23] VITALS (101 sets, daily range): BP systolic 103–152; BP diastolic 49–85
[2020-03-23] MEDS: BUDESONIDE (INHALATION) 0.5 MG/2 ML NEB NEB SCH ×3 (02:20→18:26)
[2020-03-23] MEDS: MIDAZOLAM DRIP 50 mg/50mL 50 ML IV SCH ×3 (05:00→16:47)
[2020-03-23 05:11] LABS: Basophils # (auto) 0 10 ^3/uL (0-0.2); Basophils % (auto) 0.1 % (0.0-2.0); Eosinophils # (auto) 0 10 ^3/uL (0-0.8); Hematocrit 39.9 % (41.0-53.0); Hemoglobin 12.8 g/dL (13.5-17.5); Lymphocytes # (auto) 0.4 10 ^3/uL (0.4-5.4); Lymphocytes % (auto) 3.8 % (10.0-50.0); Mean Corpuscular Hemoglobin 32.3 pg (28.0-32.0); Mean Corpuscular Hgb Conc. 32.1 g/dL (32.0-36.0); Mean Corpuscular Volume 100.5 fL (80.0-100.0); Monocytes # (auto) 0.8 10 ^3/uL (0-1.3); Monocytes % (auto) 7.8 % (0.0-12.0); Neutrophils # (auto) 9.3 10 ^3/uL (1.6-8.6); Neutrophils % (auto) 88.3 % (37.0-80.0); Nucleated Red Blood Cells % 0.1 %; Red Blood Cells 3.96 10^6/uL (4.5-5.90); Red Cell Distribution Width 13.7 % (11.8-14.3); White Blood Cell 10.5 10^3/uL (4.4-10.8)
[2020-03-23 05:42] LABS: BUN/Creatinine Ratio 85.5; Calcium 8.3 mg/dL (8.5-10.1); Potassium 4.6 mmol/L (3.5-5.1)
[2020-03-23] MEDS: METOCLOPRAMIDE HCL 5MG/ml INJ 2ml VIAL IV SCH ×3 (06:16→21:45)
[2020-03-23] MEDS: PROPOFOL 100 ML IV SCH (06:17)
[2020-03-23] MEDS: ALBUTEROL SULF 2.5 MG/0.5ML(0.5%) NEB SOLN NEB SCH ×3 (07:20→18:26)
[2020-03-23] MEDS: FUROSEMIDE 20 MG/2 ML VIAL IV SCH (09:28)
[2020-03-23] MEDS: FAMOTIDINE (10MG/ML) 2ML VL IV SCH ×2 (09:29→21:44)
[2020-03-23] MEDS: DexAMETHasone SOD PHOS 10MG/1ML VIAL INJ IV SCH (09:29)
[2020-03-23] MEDS: ENOXAPARIN SOD 80 MG/0.8ML SYRINGE SC SCH ×2 (09:29→21:45)
[2020-03-23] MEDS: ZINC SULFATE 220mg CAP or TAB PO SCH (09:29)
[2020-03-23] MEDS: CHOLECALCIFEROL (VITD3) 2,000 UNIT CAP/TAB PO SCH (09:29)
[2020-03-23] MEDS: SODIUM CHLOR 0.9% PF (SALINE LOCK) 10ML VIAL/SYR IV SCH ×2 (09:29→21:45)
[2020-03-23] MEDS: ASCORBIC ACID 1,000 MG TAB PO SCH (09:29)
[2020-03-23] MEDS: fentaNYL Drip 2500mCg/250mlNS 250 ML IV SCH (12:16)
[2020-03-24] VITALS (99 sets, daily range): BP systolic 91–144; BP diastolic 45–86
[2020-03-24 05:30] LABS: Potassium 4.6 mmol/L (3.5-5.1)
[2020-03-24 05:33] LABS: BUN/Creatinine Ratio 82.7
[2020-03-24] MEDS: ALBUTEROL SULF 2.5 MG/0.5ML(0.5%) NEB SOLN NEB SCH ×3 (06:00→21:34)
[2020-03-24] MEDS: METOCLOPRAMIDE HCL 5MG/ml INJ 2ml VIAL IV SCH ×3 (06:10→21:49)
[2020-03-24] MEDS: PROPOFOL 100 ML IV SCH (06:30)
[2020-03-24] MEDS: CHOLECALCIFEROL (VITD3) 2,000 UNIT CAP/TAB PO SCH (09:42)
[2020-03-24] MEDS: FAMOTIDINE (10MG/ML) 2ML VL IV SCH ×2 (09:42→21:49)
[2020-03-24] MEDS: ASCORBIC ACID 1,000 MG TAB PO SCH (09:42)
[2020-03-24] MEDS: SODIUM CHLOR 0.9% PF (SALINE LOCK) 10ML VIAL/SYR IV SCH ×2 (09:42→21:49)
[2020-03-24] MEDS: ENOXAPARIN SOD 80 MG/0.8ML SYRINGE SC SCH ×2 (09:42→21:50)
[2020-03-24] MEDS: ZINC SULFATE 220mg CAP or TAB PO SCH (09:42)
[2020-03-24] MEDS: FUROSEMIDE 20 MG/2 ML VIAL IV SCH (09:42)
[2020-03-24] MEDS: BUDESONIDE (INHALATION) 0.5 MG/2 ML NEB NEB SCH ×2 (10:15→21:34)
[2020-03-24] MEDS: MIDAZOLAM DRIP 50 mg/50mL 50 ML IV SCH ×2 (12:42→18:00)
[2020-03-24] MEDS: fentaNYL Drip 2500mCg/250mlNS 250 ML IV SCH (14:23)
[2020-03-25] VITALS (89 sets, daily range): BP systolic 11–147; BP diastolic 44–75
[2020-03-25] MEDS: fentaNYL Drip 2500mCg/250mlNS 250 ML IV SCH ×2 (02:33→22:36)
[2020-03-25 04:37] LABS: Calcium 8.2 mg/dL (8.5-10.1); Magnesium 3.3 mg/dL (1.6-2.6); Potassium 4.3 mmol/L (3.5-5.1)
[2020-03-25 04:40] LABS: BUN/Creatinine Ratio 77.2
[2020-03-25] MEDS: METOCLOPRAMIDE HCL 5MG/ml INJ 2ml VIAL IV SCH ×3 (06:14→21:21)
[2020-03-25] MEDS: PROPOFOL 100 ML IV SCH (06:30)
[2020-03-25] MEDS: ALBUTEROL SULF 2.5 MG/0.5ML(0.5%) NEB SOLN NEB SCH ×3 (07:03→21:23)
[2020-03-25] MEDS: FUROSEMIDE 20 MG/2 ML VIAL IV SCH (08:57)
[2020-03-25] MEDS: FAMOTIDINE (10MG/ML) 2ML VL IV SCH ×2 (08:58→21:21)
[2020-03-25] MEDS: SODIUM CHLOR 0.9% PF (SALINE LOCK) 10ML VIAL/SYR IV SCH ×2 (08:58→22:00)
[2020-03-25] MEDS: CHOLECALCIFEROL (VITD3) 2,000 UNIT CAP/TAB PO SCH (10:00)
[2020-03-25] MEDS: ENOXAPARIN SOD 80 MG/0.8ML SYRINGE SC SCH ×2 (10:00→21:21)
[2020-03-25] MEDS: BUDESONIDE (INHALATION) 0.5 MG/2 ML NEB NEB SCH ×2 (10:00→21:23)
[2020-03-25] MEDS: ZINC SULFATE 220mg CAP or TAB PO SCH (10:00)
[2020-03-25] MEDS: ASCORBIC ACID 1,000 MG TAB PO SCH (10:00)
[2020-03-25] MEDS: ACETAMINOPHEN 650 mg PER 20.3 mL UD GT PRN (12:42)
[2020-03-25] MEDS ORDERED: PIPERACILLIN-TAZOB 3.375GM 100 ML IV ONE (13:00)
[2020-03-25] MEDS ORDERED: NOREPINEPHRINE 8 MG/250ML KIT 250 ML IV ONE (13:10)
[2020-03-25] MEDS: NOREPINEPHRINE 8 MG/250ML KIT 250 ML IV SCH (13:20)
[2020-03-25] MEDS: FREE WATER GT SCH (17:15)
[2020-03-25] MEDS: PIPERACILLIN-TAZOB 3.375GM 100 ML IV SCH (17:45)
[2020-03-25 19:50] LABS: Urine Bacteria FEW /hpf (None Seen); Urine Blood 2+ /uL (Negative); Urine Mucus FEW (None Seen); Urine Specific Gravity 1.024 (1.001-1.035); Urine WBC 2 /hpf (0 - 3)
[2020-03-25] MEDS: MIDAZOLAM DRIP 50 mg/50mL 50 ML IV SCH (22:35)
[2020-03-26] VITALS (83 sets, daily range): BP systolic 86–146; BP diastolic 45–75
[2020-03-26] MEDS: PIPERACILLIN-TAZOB 3.375GM 100 ML IV SCH ×4 (00:15→18:28)
[2020-03-26] MEDS: FREE WATER GT SCH ×4 (00:18→18:00)
[2020-03-26 05:14] LABS: Albumin 2.1 g/dL (3.4-5.0); Calcium 8.1 mg/dL (8.5-10.1); Potassium 3.5 mmol/L (3.5-5.1)
[2020-03-26 05:20] LABS: BUN/Creatinine Ratio 59.7; Bilirubin, Total 1.4 mg/dL (0.2-1.0)
[2020-03-26] MEDS: METOCLOPRAMIDE HCL 5MG/ml INJ 2ml VIAL IV SCH ×3 (06:25→22:19)
[2020-03-26] MEDS: PROPOFOL 100 ML IV SCH (06:30)
[2020-03-26] MEDS: ALBUTEROL SULF 2.5 MG/0.5ML(0.5%) NEB SOLN NEB SCH ×2 (06:32→20:31)
[2020-03-26] MEDS: BUDESONIDE (INHALATION) 0.5 MG/2 ML NEB NEB SCH ×2 (06:33→20:32)
[2020-03-26 08:41] LABS: Basophils # (auto) 0 10 ^3/uL (0-0.2); Basophils % (auto) 0.2 % (0.0-2.0); Eosinophils # (auto) 0.1 10 ^3/uL (0-0.8); Eosinophils % (auto) 1.1 % (0.0-7.0); Hematocrit 35.7 % (41.0-53.0); Hemoglobin 11.6 g/dL (13.5-17.5); Lymphocytes # (auto) 0.6 10 ^3/uL (0.4-5.4); Lymphocytes % (auto) 6.1 % (10.0-50.0); Mean Corpuscular Hemoglobin 32.1 pg (28.0-32.0); Mean Corpuscular Hgb Conc. 32.5 g/dL (32.0-36.0); Mean Corpuscular Volume 98.6 fL (80.0-100.0); Monocytes # (auto) 0.5 10 ^3/uL (0-1.3); Monocytes % (auto) 5.3 % (0.0-12.0); Neutrophils # (auto) 8.1 10 ^3/uL (1.6-8.6); Neutrophils % (auto) 87.3 % (37.0-80.0); Red Blood Cells 3.63 10^6/uL (4.5-5.90); Red Cell Distribution Width 13.1 % (11.8-14.3); White Blood Cell 9.2 10^3/uL (4.4-10.8)
[2020-03-26 09:06] LABS: Albumin 1.9 g/dL (3.4-5.0); Magnesium 2.7 mg/dL (1.6-2.6); Potassium 3.2 mmol/L (3.5-5.1)
[2020-03-26 09:09] LABS: BUN/Creatinine Ratio 55.2; Bilirubin, Total 1.3 mg/dL (0.2-1.0); Total Protein 5.6 g/dL (6.4-8.2)
[2020-03-26] MEDS: CHOLECALCIFEROL (VITD3) 2,000 UNIT CAP/TAB PO SCH (10:00)
[2020-03-26] MEDS: ZINC SULFATE 220mg CAP or TAB PO SCH (10:00)
[2020-03-26] MEDS: ASCORBIC ACID 1,000 MG TAB PO SCH (10:00)
[2020-03-26] MEDS: FUROSEMIDE 20 MG/2 ML VIAL IV SCH (11:38)
[2020-03-26] MEDS: SODIUM CHLOR 0.9% PF (SALINE LOCK) 10ML VIAL/SYR IV SCH ×2 (11:39→22:19)
[2020-03-26] MEDS: ENOXAPARIN SOD 80 MG/0.8ML SYRINGE SC SCH ×2 (11:39→22:19)
[2020-03-26] MEDS: FAMOTIDINE (10MG/ML) 2ML VL IV SCH ×2 (12:00→22:19)
[2020-03-26] MEDS: NOREPINEPHRINE 8 MG/250ML KIT 250 ML IV SCH (14:57)
[2020-03-26] MEDS: POTASSIUM CHL 20MEQ/100ML 100 ML IV SCH ×2 (15:50→17:00)
[2020-03-27] VITALS (86 sets, daily range): BP systolic 123–206; BP diastolic 52–106
[2020-03-27] MEDS: PIPERACILLIN-TAZOB 3.375GM 100 ML IV SCH ×5 (00:29→18:04)
[2020-03-27 04:23] LABS: Potassium 3.4 mmol/L (3.5-5.1)
[2020-03-27 04:31] LABS: BUN/Creatinine Ratio 47.4; Bilirubin, Total 1.7 mg/dL (0.2-1.0); Calcium 8.4 mg/dL (8.5-10.1)
[2020-03-27] MEDS: FREE WATER GT SCH ×4 (06:00→18:00)
[2020-03-27] MEDS: ALBUTEROL SULF 2.5 MG/0.5ML(0.5%) NEB SOLN NEB SCH (06:00)
[2020-03-27] MEDS: PROPOFOL 100 ML IV SCH (06:30)
[2020-03-27] MEDS: MIDAZOLAM DRIP 50 mg/50mL 50 ML IV SCH (06:30)
[2020-03-27] MEDS: METOCLOPRAMIDE HCL 5MG/ml INJ 2ml VIAL IV SCH (06:38)
[2020-03-27] MEDS: BUDESONIDE (INHALATION) 0.5 MG/2 ML NEB NEB SCH (08:35)
[2020-03-27] MEDS: FUROSEMIDE 20 MG/2 ML VIAL IV SCH (10:09)
[2020-03-27] MEDS: FAMOTIDINE (10MG/ML) 2ML VL IV SCH ×2 (10:09→22:00)
[2020-03-27] MEDS: SODIUM CHLOR 0.9% PF (SALINE LOCK) 10ML VIAL/SYR IV SCH ×2 (10:09→22:00)
[2020-03-27] MEDS: ZINC SULFATE 220mg CAP or TAB PO SCH (10:10)
[2020-03-27] MEDS: CHOLECALCIFEROL (VITD3) 2,000 UNIT CAP/TAB PO SCH (10:10)
[2020-03-27] MEDS: ASCORBIC ACID 1,000 MG TAB PO SCH (10:10)
[2020-03-27] MEDS: fentaNYL Drip 2500mCg/250mlNS 250 ML IV SCH (10:11)
[2020-03-27] MEDS: ENOXAPARIN SOD 80 MG/0.8ML SYRINGE SC SCH ×2 (10:11→22:00)
[2020-03-27] MEDS: NOREPINEPHRINE 8 MG/250ML KIT 250 ML IV SCH (13:15)
[2020-03-27] MEDS ORDERED: POTASSIUM CHL 20MEQ/100ML 100 ML IV ONE (14:00)
[2020-03-27] MEDS: ALBUTEROL SULF HFA 90MCG INH 200DOSE IN PRN ×2 (15:26→22:06)
[2020-03-27] MEDS ORDERED: LABETALOL HCL 5 MG/ML 4ML SYRINGE IV PRN ×2 (15:30)
[2020-03-27] MEDS ORDERED: FUROSEMIDE 20 MG/2 ML VIAL ONE (15:35)
[2020-03-27] MEDS ORDERED: FUROSEMIDE 20 MG/2 ML VIAL IV ONE (15:45)
[2020-03-27] MEDS: BUDESONIDE (INHALATION) 180 MCG IH IN SCH (22:06)
[2020-03-28] VITALS (46 sets, daily range): BP systolic 112–173; BP diastolic 66–100
[2020-03-28] MEDS ORDERED: ACETAMINOPHEN 650 MG RECT SUPP PR PRN (01:45)
[2020-03-28 03:23] LABS: Basophils # (auto) 0.2 10 ^3/uL (0-0.2); Basophils % (auto) 0.7 % (0.0-2.0); Eosinophils # (auto) 0 10 ^3/uL (0-0.8); Hematocrit 41.9 % (41.0-53.0); Hemoglobin 13.9 g/dL (13.5-17.5); Lymphocytes # (auto) 0.3 10 ^3/uL (0.4-5.4); Lymphocytes % (auto) 1.4 % (10.0-50.0); Mean Corpuscular Hemoglobin 32.3 pg (28.0-32.0); Mean Corpuscular Hgb Conc. 33.1 g/dL (32.0-36.0); Mean Corpuscular Volume 97.4 fL (80.0-100.0); Monocytes # (auto) 0.6 10 ^3/uL (0-1.3); Monocytes % (auto) 2.5 % (0.0-12.0); Neutrophils # (auto) 23.3 10 ^3/uL (1.6-8.6); Neutrophils % (auto) 95.4 % (37.0-80.0); Red Cell Distribution Width 13.3 % (11.8-14.3); White Blood Cell 24.5 10^3/uL (4.4-10.8)
[2020-03-28 03:45] LABS: Albumin 2.3 g/dL (3.4-5.0); Magnesium 2.6 mg/dL (1.6-2.6); Potassium 3.4 mmol/L (3.5-5.1)
[2020-03-28 03:47] LABS: BUN/Creatinine Ratio 45.3; Bilirubin, Total 2.5 mg/dL (0.2-1.0); Total Protein 7.2 g/dL (6.4-8.2)
[2020-03-28] MEDS ORDERED: BUDESONIDE (INHALATION) 0.5 MG/2 ML NEB ONE (05:45)
[2020-03-28] MEDS ORDERED: ALBUTEROL SULF 2.5 MG/0.5ML(0.5%) NEB SOLN ONE ×2 (05:45→14:34)
[2020-03-28] MEDS: PIPERACILLIN-TAZOB 3.375GM 100 ML IV SCH ×3 (06:00→12:16)
[2020-03-28] MEDS: FREE WATER GT SCH ×3 (06:00→12:00)
[2020-03-28] MEDS ORDERED: D5W 5% 500 ML IV ONE (09:45)
[2020-03-28] MEDS ORDERED: LORazepam 2MG/ML-1ML VIAL IV PRN (09:45)
[2020-03-28] MEDS: BUDESONIDE (INHALATION) 180 MCG IH IN SCH ×2 (10:00→18:53)
[2020-03-28] MEDS ORDERED: FUROSEMIDE 20 MG/2 ML VIAL IV SCH (10:00)
[2020-03-28] MEDS: CHOLECALCIFEROL (VITD3) 2,000 UNIT CAP/TAB PO SCH ×2 (10:00→10:11)
[2020-03-28] MEDS: ZINC SULFATE 220mg CAP or TAB PO SCH ×2 (10:00→10:10)
[2020-03-28] MEDS: ASCORBIC ACID 1,000 MG TAB PO SCH ×2 (10:00→10:11)
[2020-03-28] MEDS ORDERED: FUROSEMIDE 40 MG/4 ML VIAL ONE (10:01)
[2020-03-28] MEDS: ENOXAPARIN SOD 80 MG/0.8ML SYRINGE SC SCH ×2 (10:10→22:00)
[2020-03-28] MEDS: SODIUM CHLOR 0.9% PF (SALINE LOCK) 10ML VIAL/SYR IV SCH ×2 (10:10→22:30)
[2020-03-28] MEDS: FAMOTIDINE (10MG/ML) 2ML VL IV SCH ×2 (10:10→22:30)
[2020-03-28] MEDS: POTASSIUM CHL 20MEQ/100ML 100 ML IV SCH ×2 (11:33→13:09)
[2020-03-28] MEDS ORDERED: LINEZOLID 600MG/300ML 300 ML IV ONE (16:00)
[2020-03-28] MEDS: MEROPENEM 1GM IVPB 100 ML IV SCH ×2 (17:37→22:30)
[2020-03-28] MEDS ORDERED: ONDANSETRON HCL 4 MG/2 ML VIAL ONE (23:37)
[2020-03-28] MEDS ORDERED: SUCCINYLCHOLINE CHLORIDE 20 MG/ML 10ML VIAL IV ONE (23:40)
[2020-03-28] MEDS ORDERED: ETOMIDATE (2MG/ML) 20ML VIAL IV ONE (23:40)
[2020-03-28] MEDS ORDERED: MIDAZOLAM DRIP 50 mg/50mL 50 ML IV ONE (23:48)
[2020-03-28] MEDS ORDERED: PROPOFOL 100 ML IV ONE (23:49)
[2020-03-29] VITALS (90 sets, daily range): BP systolic 72–139; BP diastolic 34–81
[2020-03-29] MEDS: MIDAZOLAM DRIP 50 mg/50mL 50 ML IV SCH ×3 (00:10→18:59)
[2020-03-29] MEDS ORDERED: fentaNYL Drip 2500mCg/250mlNS 250 ML IV ONE (00:22)
[2020-03-29] MEDS ORDERED: MIDAZOLAM DRIP 50 mg/50mL 50 ML IV ONE (00:28)
[2020-03-29] MEDS: NOREPINEPHRINE 8 MG/250ML KIT 250 ML IV SCH (00:45)
[2020-03-29] MEDS: MEROPENEM 1GM IVPB 100 ML IV SCH ×3 (05:00→22:00)
[2020-03-29] MEDS: LINEZOLID 600MG/300ML 300 ML IV SCH ×2 (06:00→18:00)
[2020-03-29] MEDS: BUDESONIDE (INHALATION) 180 MCG IH IN SCH ×2 (06:24→22:00)
[2020-03-29] MEDS: ALBUTEROL SULF HFA 90MCG INH 200DOSE IN PRN (06:25)
[2020-03-29 07:04] LABS: Basophils # (auto) 0 10 ^3/uL (0-0.2); Eosinophils # (auto) 0 10 ^3/uL (0-0.8); Eosinophils % (auto) 0.1 % (0.0-7.0); Hematocrit 37.9 % (41.0-53.0); Hemoglobin 12.3 g/dL (13.5-17.5); Lymphocytes # (auto) 0.5 10 ^3/uL (0.4-5.4); Lymphocytes % (auto) 2.9 % (10.0-50.0); Mean Corpuscular Hemoglobin 31.6 pg (28.0-32.0); Mean Corpuscular Hgb Conc. 32.6 g/dL (32.0-36.0); Mean Corpuscular Volume 96.9 fL (80.0-100.0); Monocytes # (auto) 0.4 10 ^3/uL (0-1.3); Monocytes % (auto) 1.9 % (0.0-12.0); Neutrophils # (auto) 17.5 10 ^3/uL (1.6-8.6); Neutrophils % (auto) 95.1 % (37.0-80.0); Red Blood Cells 3.91 10^6/uL (4.5-5.90); Red Cell Distribution Width 13.2 % (11.8-14.3); White Blood Cell 18.4 10^3/uL (4.4-10.8)
[2020-03-29 07:31] LABS: Calcium 8.6 mg/dL (8.5-10.1); Magnesium 2.8 mg/dL (1.6-2.6); Potassium 3.4 mmol/L (3.5-5.1)
[2020-03-29 07:34] LABS: Bilirubin, Total 1.3 mg/dL (0.2-1.0); Total Protein 6.9 g/dL (6.4-8.2)
[2020-03-29] MEDS: PROPOFOL 100 ML IV SCH ×2 (08:18)
[2020-03-29] MEDS ORDERED: POTASSIUM CHL 20 Meq TABLET PO SCH (10:00)
[2020-03-29] MEDS: FUROSEMIDE 40 MG/4 ML VIAL IV SCH (10:07)
[2020-03-29] MEDS: SODIUM CHLOR 0.9% PF (SALINE LOCK) 10ML VIAL/SYR IV SCH ×2 (10:07→22:00)
[2020-03-29] MEDS: FAMOTIDINE (10MG/ML) 2ML VL IV SCH ×2 (10:07→22:00)
[2020-03-29] MEDS: CHOLECALCIFEROL (VITD3) 2,000 UNIT CAP/TAB PO SCH (10:08)
[2020-03-29] MEDS: ZINC SULFATE 220mg CAP or TAB PO SCH (10:08)
[2020-03-29] MEDS: ENOXAPARIN SOD 80 MG/0.8ML SYRINGE SC SCH ×2 (10:08→22:00)
[2020-03-29] MEDS: ASCORBIC ACID 1,000 MG TAB PO SCH (10:08)
[2020-03-29] MEDS: fentaNYL Drip 2500mCg/250mlNS 250 ML IV SCH (11:25)
[2020-03-29] MEDS ORDERED: POTASSIUM EFFERVESENT TAB 25 MEQ PO ONE (11:30)
[2020-03-30] VITALS (99 sets, daily range): BP systolic 79–124; BP diastolic 41–67
[2020-03-30] MEDS: fentaNYL Drip 2500mCg/250mlNS 250 ML IV SCH ×2 (00:30→11:43)
[2020-03-30] MEDS: LINEZOLID 600MG/300ML 300 ML IV SCH ×2 (04:00→15:48)
[2020-03-30 04:23] LABS: Basophils # (auto) 0 10 ^3/uL (0-0.2); Basophils % (auto) 0.2 % (0.0-2.0); Eosinophils # (auto) 0.3 10 ^3/uL (0-0.8); Eosinophils % (auto) 1.9 % (0.0-7.0); Hematocrit 32.1 % (41.0-53.0); Hemoglobin 10.4 g/dL (13.5-17.5); Lymphocytes # (auto) 0.5 10 ^3/uL (0.4-5.4); Lymphocytes % (auto) 2.9 % (10.0-50.0); Mean Corpuscular Hgb Conc. 32.3 g/dL (32.0-36.0); Mean Corpuscular Volume 99.1 fL (80.0-100.0); Monocytes # (auto) 0.4 10 ^3/uL (0-1.3); Monocytes % (auto) 2.1 % (0.0-12.0); Neutrophils # (auto) 15.8 10 ^3/uL (1.6-8.6); Neutrophils % (auto) 92.9 % (37.0-80.0); Red Blood Cells 3.24 10^6/uL (4.5-5.90); Red Cell Distribution Width 13.4 % (11.8-14.3)
[2020-03-30 04:43] LABS: Albumin 1.7 g/dL (3.4-5.0); Calcium 8.2 mg/dL (8.5-10.1); Potassium 3.5 mmol/L (3.5-5.1)
[2020-03-30 04:46] LABS: BUN/Creatinine Ratio 31.3; Bilirubin, Total 1.3 mg/dL (0.2-1.0); Total Protein 6.1 g/dL (6.4-8.2)
[2020-03-30] MEDS: MEROPENEM 1GM IVPB 100 ML IV SCH ×3 (06:00→22:15)
[2020-03-30] MEDS: MIDAZOLAM DRIP 50 mg/50mL 50 ML IV SCH ×4 (07:51→21:00)
[2020-03-30] MEDS: NOREPINEPHRINE 8 MG/250ML KIT 250 ML IV SCH (07:52)
[2020-03-30] MEDS: FAMOTIDINE (10MG/ML) 2ML VL IV SCH ×2 (09:55→22:15)
[2020-03-30] MEDS: ASCORBIC ACID 1,000 MG TAB PO SCH (09:55)
[2020-03-30] MEDS: POTASSIUM EFFERVESENT TAB 25 MEQ GT SCH (09:55)
[2020-03-30] MEDS: ZINC SULFATE 220mg CAP or TAB PO SCH (09:55)
[2020-03-30] MEDS: SODIUM CHLOR 0.9% PF (SALINE LOCK) 10ML VIAL/SYR IV SCH ×2 (09:55→22:15)
[2020-03-30] MEDS: CHOLECALCIFEROL (VITD3) 2,000 UNIT CAP/TAB PO SCH (09:55)
[2020-03-30] MEDS: PROPOFOL 100 ML IV SCH ×3 (09:56→23:52)
[2020-03-30] MEDS: BUDESONIDE (INHALATION) 180 MCG IH IN SCH (10:00)
[2020-03-30] MEDS: FUROSEMIDE 40 MG/4 ML VIAL IV SCH (14:14)
[2020-03-30] MEDS: ENOXAPARIN SOD 80 MG/0.8ML SYRINGE SC SCH ×2 (14:15→22:15)
[2020-03-30] MEDS: SOD CHL 0.45% 1,000 ML IV SCH (14:15)
[2020-03-31] VITALS (102 sets, daily range): BP systolic 79–160; BP diastolic 45–76
[2020-03-31] MEDS: NOREPINEPHRINE 8 MG/250ML KIT 250 ML IV SCH (00:30)
[2020-03-31] MEDS: fentaNYL Drip 2500mCg/250mlNS 250 ML IV SCH ×2 (00:33→13:41)
[2020-03-31] MEDS: LINEZOLID 600MG/300ML 300 ML IV SCH (04:44)
[2020-03-31 05:11] LABS: Basophils # (auto) 0 10 ^3/uL (0-0.2); Basophils % (auto) 0.2 % (0.0-2.0); Eosinophils # (auto) 0.6 10 ^3/uL (0-0.8); Eosinophils % (auto) 4.6 % (0.0-7.0); Hematocrit 29.9 % (41.0-53.0); Hemoglobin 9.8 g/dL (13.5-17.5); Lymphocytes # (auto) 0.5 10 ^3/uL (0.4-5.4); Lymphocytes % (auto) 3.9 % (10.0-50.0); Mean Corpuscular Hemoglobin 32.4 pg (28.0-32.0); Mean Corpuscular Hgb Conc. 32.9 g/dL (32.0-36.0); Mean Corpuscular Volume 98.5 fL (80.0-100.0); Monocytes # (auto) 0.2 10 ^3/uL (0-1.3); Monocytes % (auto) 1.9 % (0.0-12.0); Neutrophils # (auto) 11.5 10 ^3/uL (1.6-8.6); Neutrophils % (auto) 89.4 % (37.0-80.0); Red Blood Cells 3.04 10^6/uL (4.5-5.90); Red Cell Distribution Width 13.5 % (11.8-14.3); White Blood Cell 12.8 10^3/uL (4.4-10.8)
[2020-03-31 05:29] LABS: Anion Gap 6 (5-15); Blood Urea Nitrogen 72 mg/dL (7-18); Carbon Dioxide 28 mmol/L (21-32); Chloride 110 mmol/L (98-107); Glucose 73 mg/dL (74-106); Potassium 3.7 mmol/L (3.5-5.1); Sodium 144 mmol/L (136-145)
[2020-03-31 05:39] LABS: BUN/Creatinine Ratio 35.3; GFR African American 42 mL/min; GFR Non-African American 35 mL/min; Lactate Dehydrogenase 409 U/L (87-241)
[2020-03-31 06:12] LABS: CRP High Sensitivity > 19 mg/dL (< 0.3)
[2020-03-31] MEDS: SOD CHL 0.45% 1,000 ML IV SCH ×3 (06:24→18:00)
[2020-03-31] MEDS: MEROPENEM 1GM IVPB 100 ML IV SCH (06:28)
[2020-03-31] MEDS: MIDAZOLAM DRIP 50 mg/50mL 50 ML IV SCH ×2 (06:30→18:51)
[2020-03-31] MEDS: ENOXAPARIN SOD 80 MG/0.8ML SYRINGE SC SCH ×2 (10:00→21:48)
[2020-03-31] MEDS: POTASSIUM EFFERVESENT TAB 25 MEQ GT SCH (11:05)
[2020-03-31] MEDS: FAMOTIDINE (10MG/ML) 2ML VL IV SCH ×2 (11:06→21:48)
[2020-03-31] MEDS: DexAMETHasone SOD PHOS 10MG/1ML VIAL INJ IV SCH (11:06)
[2020-03-31] MEDS: SODIUM CHLOR 0.9% PF (SALINE LOCK) 10ML VIAL/SYR IV SCH ×2 (11:06→21:48)
[2020-03-31] MEDS: ZINC SULFATE 220mg CAP or TAB PO SCH (11:06)
[2020-03-31] MEDS: ASCORBIC ACID 1,000 MG TAB PO SCH (11:06)
[2020-03-31] MEDS: CHOLECALCIFEROL (VITD3) 2,000 UNIT CAP/TAB PO SCH (11:07)
[2020-03-31] MEDS: PROPOFOL 100 ML IV SCH (13:42)
[2020-03-31] MEDS: LACTULOSE 20Gm/30ML SOLN PO PRN (16:00)
[2020-03-31] MEDS: BUDESONIDE (INHALATION) 0.5 MG/2 ML NEB NEB SCH (22:40)
[2020-04-01] VITALS (94 sets, daily range): BP systolic 97–159; BP diastolic 51–76
[2020-04-01] MEDS: NOREPINEPHRINE 8 MG/250ML KIT 250 ML IV SCH (00:30)
[2020-04-01] MEDS: fentaNYL Drip 2500mCg/250mlNS 250 ML IV SCH (00:31)
[2020-04-01] MEDS: SOD CHL 0.45% 1,000 ML IV SCH (03:15)
[2020-04-01] MEDS ORDERED: MIDAZOLAM HCL 10 ML IV ONE (04:35)
[2020-04-01 04:53] LABS: Hematocrit 26.1 % (41.0-53.0); Hemoglobin 8.9 g/dL (13.5-17.5); Mean Corpuscular Volume 97.1 fL (80.0-100.0); Red Blood Cells 2.69 10^6/uL (4.5-5.90); Red Cell Distribution Width 13.3 % (11.8-14.3); White Blood Cell 9.1 10^3/uL (4.4-10.8)
[2020-04-01 05:06] LABS: Potassium 4.1 mmol/L (3.5-5.1)
[2020-04-01 05:12] LABS: Calcium 8.1 mg/dL (8.5-10.1)
[2020-04-01 05:51] LABS: Basophils % (manual) 0 (0.0-2.0); Blast Cells 0; Eosinophils % (manual) 0 (0-7); Metamyelocytes % 0; Myelocytes % 0; Promyelocytes % 0; Reactive Lymphocytes 0
[2020-04-01 06:25] LABS: Band Neutrophils % (manual) 1
[2020-04-01 06:26] LABS: Lymphocytes % (manual) 2 (10.0-50.0); Monocytes % (manual) 2 (0-12)
[2020-04-01] MEDS: BUDESONIDE (INHALATION) 0.5 MG/2 ML NEB NEB SCH ×2 (10:00→19:15)
[2020-04-01] MEDS: FAMOTIDINE (10MG/ML) 2ML VL IV SCH ×2 (10:05→22:10)
[2020-04-01] MEDS: ENOXAPARIN SOD 80 MG/0.8ML SYRINGE SC SCH ×2 (10:05→22:00)
[2020-04-01] MEDS: DexAMETHasone SOD PHOS 10MG/1ML VIAL INJ IV SCH (10:06)
[2020-04-01] MEDS: ASCORBIC ACID 1,000 MG TAB PO SCH (10:07)
[2020-04-01] MEDS: ZINC SULFATE 220mg CAP or TAB PO SCH (10:09)
[2020-04-01] MEDS: SODIUM CHLOR 0.9% PF (SALINE LOCK) 10ML VIAL/SYR IV SCH ×2 (10:09→22:27)
[2020-04-01] MEDS: CHOLECALCIFEROL (VITD3) 2,000 UNIT CAP/TAB PO SCH (10:10)
[2020-04-01] MEDS: FLUCONAZOLE 200MG/100ML 100 ML IV SCH ×2 (18:26→19:40)
[2020-04-02] VITALS (94 sets, daily range): BP systolic 101–149; BP diastolic 46–70
[2020-04-02 04:52] LABS: Basophils # (auto) 0 10 ^3/uL (0-0.2); Basophils % (auto) 0.1 % (0.0-2.0); Eosinophils # (auto) 0 10 ^3/uL (0-0.8); Hematocrit 24.1 % (41.0-53.0); Hemoglobin 8.1 g/dL (13.5-17.5); Lymphocytes # (auto) 0.4 10 ^3/uL (0.4-5.4); Mean Corpuscular Hgb Conc. 33.8 g/dL (32.0-36.0); Monocytes # (auto) 0.3 10 ^3/uL (0-1.3); Neutrophils # (auto) 7.3 10 ^3/uL (1.6-8.6)
[2020-04-02 04:54] LABS: Lymphocytes % (auto) 4.8 % (10.0-50.0); Mean Corpuscular Hemoglobin 33.2 pg (28.0-32.0); Mean Corpuscular Volume 98.1 fL (80.0-100.0); Monocytes % (auto) 3.9 % (0.0-12.0); Neutrophils % (auto) 91.2 % (37.0-80.0); Red Blood Cells 2.46 10^6/uL (4.5-5.90); Red Cell Distribution Width 13.1 % (11.8-14.3)
[2020-04-02 05:04] LABS: INR 1.01 (0.9-1.15)
[2020-04-02 05:15] LABS: Potassium 4.3 mmol/L (3.5-5.1)
[2020-04-02 05:29] LABS: Albumin 1.6 g/dL (3.4-5.0); BUN/Creatinine Ratio 55.5; Bilirubin, Total 0.6 mg/dL (0.2-1.0); Magnesium 2.9 mg/dL (1.6-2.6); Total Protein 5.8 g/dL (6.4-8.2)
[2020-04-02] MEDS: BUDESONIDE (INHALATION) 0.5 MG/2 ML NEB NEB SCH ×2 (06:56→22:41)
[2020-04-02] MEDS: NOREPINEPHRINE 8 MG/250ML KIT 250 ML IV SCH (08:00)
[2020-04-02] MEDS: MIDAZOLAM DRIP 50 mg/50mL 50 ML IV SCH ×3 (09:30→12:58)
[2020-04-02] MEDS: DexAMETHasone SOD PHOS 10MG/1ML VIAL INJ IV SCH (10:00)
[2020-04-02] MEDS: FLUCONAZOLE 200MG/100ML 100 ML IV SCH ×2 (10:00→11:00)
[2020-04-02] MEDS: ENOXAPARIN SOD 80 MG/0.8ML SYRINGE SC SCH (10:00)
[2020-04-02] MEDS: CHOLECALCIFEROL (VITD3) 2,000 UNIT CAP/TAB PO SCH (10:00)
[2020-04-02] MEDS: ASCORBIC ACID 1,000 MG TAB PO SCH (10:00)
[2020-04-02] MEDS: ZINC SULFATE 220mg CAP or TAB PO SCH (10:00)
[2020-04-02] MEDS: SODIUM CHLOR 0.9% PF (SALINE LOCK) 10ML VIAL/SYR IV SCH (10:00)
[2020-04-02] MEDS: FAMOTIDINE (10MG/ML) 2ML VL IV SCH (10:00)
[2020-04-02] MEDS: cefTRIAXone 1GM/50ML D5W 50 ML IV SCH (13:04)
[2020-04-02] MEDS: metroNIDAZOLE 500MG/100ML 100 ML IV SCH (13:30)
[2020-04-02] MEDS: PROPOFOL 100 ML IV SCH (13:30)
[2020-04-02] MEDS ORDERED: MEROPENEM 1GM IVPB 100 ML IV SCH (14:00)
[2020-04-02] MEDS: fentaNYL Drip 2500mCg/250mlNS 250 ML IV SCH (17:19)
[2020-04-02] MEDS: SOD CHL 0.45% 1,000 ML IV SCH (20:25)
[2020-04-02] MEDS: ENOXAPARIN SOD 40 MG/0.4 ML SYRINGE SC SCH (22:00)
[2020-04-03] VITALS (68 sets, daily range): BP systolic 125–168; BP diastolic 54–75
[2020-04-03] MEDS: metroNIDAZOLE 500MG/100ML 100 ML IV SCH ×4 (00:16→22:00)
[2020-04-03] MEDS: FAMOTIDINE (10MG/ML) 2ML VL IV SCH ×3 (00:18→22:00)
[2020-04-03] MEDS: SODIUM CHLOR 0.9% PF (SALINE LOCK) 10ML VIAL/SYR IV SCH ×3 (00:21→22:00)
[2020-04-03] MEDS: PROPOFOL 100 ML IV SCH (06:31)
[2020-04-03] MEDS: BUDESONIDE (INHALATION) 0.5 MG/2 ML NEB NEB SCH ×2 (06:44→22:13)
[2020-04-03 06:56] LABS: Basophils # (auto) 0 10 ^3/uL (0-0.2); Basophils % (auto) 0.1 % (0.0-2.0); Eosinophils # (auto) 0 10 ^3/uL (0-0.8); Hematocrit 23.7 % (41.0-53.0); Lymphocytes # (auto) 0.3 10 ^3/uL (0.4-5.4); Monocytes # (auto) 0.2 10 ^3/uL (0-1.3)
[2020-04-03 07:01] LABS: Hemoglobin 8.1 g/dL (13.5-17.5); Lymphocytes % (auto) 5.5 % (10.0-50.0); Mean Corpuscular Hemoglobin 33.3 pg (28.0-32.0); Mean Corpuscular Hgb Conc. 34.1 g/dL (32.0-36.0); Mean Corpuscular Volume 97.7 fL (80.0-100.0); Monocytes % (auto) 3.9 % (0.0-12.0); Neutrophils # (auto) 5.5 10 ^3/uL (1.6-8.6); Neutrophils % (auto) 90.5 % (37.0-80.0); Potassium 4.7 mmol/L (3.5-5.1); Red Blood Cells 2.43 10^6/uL (4.5-5.90)
[2020-04-03 07:05] LABS: BUN/Creatinine Ratio 58.3
[2020-04-03] MEDS: SOD CHL 0.45% 1,000 ML IV SCH (08:00)
[2020-04-03] MEDS: NOREPINEPHRINE 8 MG/250ML KIT 250 ML IV SCH (08:00)
[2020-04-03] MEDS: cefTRIAXone 1GM/50ML D5W 50 ML IV SCH (08:30)
[2020-04-03] MEDS: DexAMETHasone SOD PHOS 10MG/1ML VIAL INJ IV SCH (10:10)
[2020-04-03] MEDS: FLUCONAZOLE 200MG/100ML 100 ML IV SCH ×2 (10:11→11:50)
[2020-04-03] MEDS: CHOLECALCIFEROL (VITD3) 2,000 UNIT CAP/TAB PO SCH (10:13)
[2020-04-03] MEDS: ASCORBIC ACID 1,000 MG TAB PO SCH (10:13)
[2020-04-03] MEDS: ZINC SULFATE 220mg CAP or TAB PO SCH (10:13)
[2020-04-03] MEDS: ENOXAPARIN SOD 40 MG/0.4 ML SYRINGE SC SCH ×2 (10:13→22:00)
[2020-04-03] MEDS: fentaNYL Drip 2500mCg/250mlNS 250 ML IV SCH (20:00)
[2020-04-04] VITALS (72 sets, daily range): BP systolic 126–170; BP diastolic 64–73
[2020-04-04] MEDS: PROPOFOL 100 ML IV SCH ×2 (01:00→13:37)
[2020-04-04] MEDS: metroNIDAZOLE 500MG/100ML 100 ML IV SCH ×3 (05:42→22:24)
[2020-04-04] MEDS: BUDESONIDE (INHALATION) 0.5 MG/2 ML NEB NEB SCH ×2 (07:10→19:33)
[2020-04-04] MEDS: cefTRIAXone 1GM/50ML D5W 50 ML IV SCH (08:18)
[2020-04-04] MEDS: fentaNYL Drip 2500mCg/250mlNS 250 ML IV SCH (09:52)
[2020-04-04] MEDS: DexAMETHasone SOD PHOS 10MG/1ML VIAL INJ IV SCH (09:58)
[2020-04-04] MEDS: CHOLECALCIFEROL (VITD3) 2,000 UNIT CAP/TAB PO SCH (09:59)
[2020-04-04] MEDS: SODIUM CHLOR 0.9% PF (SALINE LOCK) 10ML VIAL/SYR IV SCH ×2 (09:59→22:25)
[2020-04-04] MEDS: ASCORBIC ACID 1,000 MG TAB PO SCH (09:59)
[2020-04-04] MEDS: ZINC SULFATE 220mg CAP or TAB PO SCH (09:59)
[2020-04-04] MEDS: FLUCONAZOLE 200MG/100ML 100 ML IV SCH ×2 (09:59→11:36)
[2020-04-04] MEDS: FAMOTIDINE (10MG/ML) 2ML VL IV SCH ×2 (09:59→22:25)
[2020-04-04] MEDS: ENOXAPARIN SOD 40 MG/0.4 ML SYRINGE SC SCH (09:59)
[2020-04-04] MEDS: NOREPINEPHRINE 8 MG/250ML KIT 250 ML IV SCH (11:43)
[2020-04-04] MEDS: MIDAZOLAM DRIP 50 mg/50mL 50 ML IV SCH ×3 (13:26→22:58)
[2020-04-04] MEDS: ENOXAPARIN SOD 80 MG/0.8ML SYRINGE SC SCH (22:00)
[2020-04-05] VITALS (97 sets, daily range): BP systolic 125–182; BP diastolic 63–82
[2020-04-05] MEDS: fentaNYL Drip 2500mCg/250mlNS 250 ML IV SCH ×2 (00:30→18:11)
[2020-04-05] MEDS: PROPOFOL 100 ML IV SCH ×3 (05:00→18:44)
[2020-04-05 05:08] LABS: Basophils # (auto) 0 10 ^3/uL (0-0.2); Basophils % (auto) 0.1 % (0.0-2.0); Eosinophils # (auto) 0 10 ^3/uL (0-0.8); Hematocrit 25.4 % (41.0-53.0); Hemoglobin 8.6 g/dL (13.5-17.5); Lymphocytes # (auto) 0.5 10 ^3/uL (0.4-5.4); Lymphocytes % (auto) 7.3 % (10.0-50.0); Mean Corpuscular Hemoglobin 32.8 pg (28.0-32.0); Mean Corpuscular Hgb Conc. 33.9 g/dL (32.0-36.0); Mean Corpuscular Volume 96.7 fL (80.0-100.0); Monocytes # (auto) 0.4 10 ^3/uL (0-1.3); Monocytes % (auto) 6.7 % (0.0-12.0); Neutrophils # (auto) 5.4 10 ^3/uL (1.6-8.6); Neutrophils % (auto) 85.9 % (37.0-80.0); Red Blood Cells 2.62 10^6/uL (4.5-5.90); Red Cell Distribution Width 12.8 % (11.8-14.3); White Blood Cell 6.3 10^3/uL (4.4-10.8)
[2020-04-05 05:23] LABS: Potassium 4.6 mmol/L (3.5-5.1)
[2020-04-05] MEDS: metroNIDAZOLE 500MG/100ML 100 ML IV SCH ×3 (05:32→22:00)
[2020-04-05 05:41] LABS: BUN/Creatinine Ratio 55.1; CRP High Sensitivity 1.25 mg/dL (< 0.3); Calcium 8.1 mg/dL (8.5-10.1); Magnesium 2.6 mg/dL (1.6-2.6)
[2020-04-05] MEDS: BUDESONIDE (INHALATION) 0.5 MG/2 ML NEB NEB SCH (07:10)
[2020-04-05] MEDS: cefTRIAXone 1GM/50ML D5W 50 ML IV SCH (08:13)
[2020-04-05] MEDS: FLUCONAZOLE 200MG/100ML 100 ML IV SCH ×2 (09:20→10:28)
[2020-04-05] MEDS: SODIUM CHLOR 0.9% PF (SALINE LOCK) 10ML VIAL/SYR IV SCH ×2 (09:20→22:00)
[2020-04-05] MEDS: DexAMETHasone SOD PHOS 10MG/1ML VIAL INJ IV SCH (09:20)
[2020-04-05] MEDS: ZINC SULFATE 220mg CAP or TAB PO SCH (09:20)
[2020-04-05] MEDS: ASCORBIC ACID 1,000 MG TAB PO SCH (09:20)
[2020-04-05] MEDS: FAMOTIDINE (10MG/ML) 2ML VL IV SCH ×2 (09:20→22:00)
[2020-04-05] MEDS: CHOLECALCIFEROL (VITD3) 2,000 UNIT CAP/TAB PO SCH (09:20)
[2020-04-05] MEDS: ENOXAPARIN SOD 80 MG/0.8ML SYRINGE SC SCH ×2 (09:20→22:00)
[2020-04-05] MEDS ORDERED: Jevity 1.2 Cal/Fiber 1 Liter GT SCH (11:45)
[2020-04-05] MEDS: MIDAZOLAM DRIP 50 mg/50mL 50 ML IV SCH ×2 (11:51→23:50)
[2020-04-06] VITALS (86 sets, daily range): BP systolic 110–163; BP diastolic 55–84
[2020-04-06] MEDS: BUDESONIDE (INHALATION) 0.5 MG/2 ML NEB NEB SCH ×3 (00:07→20:28)
[2020-04-06 05:40] LABS: BUN/Creatinine Ratio 57.7; Calcium 8.1 mg/dL (8.5-10.1); Potassium 4.5 mmol/L (3.5-5.1)
[2020-04-06] MEDS: metroNIDAZOLE 500MG/100ML 100 ML IV SCH ×3 (06:00→21:55)
[2020-04-06] MEDS: cefTRIAXone 1GM/50ML D5W 50 ML IV SCH (08:16)
[2020-04-06] MEDS: CHOLECALCIFEROL (VITD3) 2,000 UNIT CAP/TAB PO SCH (08:17)
[2020-04-06] MEDS: DexAMETHasone SOD PHOS 10MG/1ML VIAL INJ IV SCH (08:17)
[2020-04-06] MEDS: FAMOTIDINE (10MG/ML) 2ML VL IV SCH ×2 (08:17→21:55)
[2020-04-06] MEDS: ZINC SULFATE 220mg CAP or TAB PO SCH (08:18)
[2020-04-06] MEDS: SODIUM CHLOR 0.9% PF (SALINE LOCK) 10ML VIAL/SYR IV SCH ×2 (08:18→21:55)
[2020-04-06] MEDS: ASCORBIC ACID 1,000 MG TAB PO SCH (08:18)
[2020-04-06] MEDS: FLUCONAZOLE 200MG/100ML 100 ML IV SCH ×2 (08:18→09:48)
[2020-04-06] MEDS: ENOXAPARIN SOD 80 MG/0.8ML SYRINGE SC SCH ×2 (08:18→21:55)
[2020-04-06] MEDS: fentaNYL Drip 2500mCg/250mlNS 250 ML IV SCH (09:47)
[2020-04-06] MEDS ORDERED: FUROSEMIDE 40 MG/4 ML VIAL IV SCH (10:15)
[2020-04-06] MEDS: PROPOFOL 100 ML IV SCH (13:20)
[2020-04-06] MEDS: MIDAZOLAM DRIP 50 mg/50mL 50 ML IV SCH (13:22)
[2020-04-06] MEDS ORDERED: MAGNESIUM SULFATE 1GM/100ML 0 ML IV ONE ×2 (13:37→16:26)
[2020-04-06] MEDS: FUROSEMIDE 40 MG/4 ML VIAL IV SCH (17:01)
[2020-04-07] VITALS (93 sets, daily range): BP systolic 109–147; BP diastolic 59–78
[2020-04-07] MEDS: PROPOFOL 100 ML IV SCH ×2 (00:51→08:38)
[2020-04-07] MEDS: MIDAZOLAM DRIP 50 mg/50mL 50 ML IV SCH ×2 (00:52→13:54)
[2020-04-07] MEDS: fentaNYL Drip 2500mCg/250mlNS 250 ML IV SCH ×2 (02:00→18:42)
[2020-04-07] MEDS: metroNIDAZOLE 500MG/100ML 100 ML IV SCH ×3 (06:00→22:27)
[2020-04-07] MEDS: FUROSEMIDE 40 MG/4 ML VIAL IV SCH ×2 (07:30→18:09)
[2020-04-07] MEDS: cefTRIAXone 1GM/50ML D5W 50 ML IV SCH (08:35)
[2020-04-07] MEDS: DexAMETHasone SOD PHOS 10MG/1ML VIAL INJ IV SCH (08:41)
[2020-04-07] MEDS: ENOXAPARIN SOD 80 MG/0.8ML SYRINGE SC SCH ×2 (08:42→22:28)
[2020-04-07] MEDS: SODIUM CHLOR 0.9% PF (SALINE LOCK) 10ML VIAL/SYR IV SCH ×2 (08:43→22:28)
[2020-04-07] MEDS: FAMOTIDINE (10MG/ML) 2ML VL IV SCH ×2 (08:43→22:27)
[2020-04-07] MEDS: ZINC SULFATE 220mg CAP or TAB PO SCH (08:44)
[2020-04-07] MEDS: ASCORBIC ACID 1,000 MG TAB PO SCH (08:44)
[2020-04-07] MEDS: CHOLECALCIFEROL (VITD3) 2,000 UNIT CAP/TAB PO SCH (08:44)
[2020-04-07] MEDS: BUDESONIDE (INHALATION) 0.5 MG/2 ML NEB NEB SCH ×2 (10:11→19:38)
[2020-04-07] MEDS: FLUCONAZOLE 200MG/100ML 100 ML IV SCH ×2 (10:11→12:29)
[2020-04-08] VITALS (98 sets, daily range): BP systolic 108–174; BP diastolic 55–91
[2020-04-08] MEDS: PROPOFOL 100 ML IV SCH (00:50)
[2020-04-08] MEDS: MIDAZOLAM DRIP 50 mg/50mL 50 ML IV SCH (05:20)
[2020-04-08] MEDS: metroNIDAZOLE 500MG/100ML 100 ML IV SCH ×3 (06:15→22:34)
[2020-04-08] MEDS: FUROSEMIDE 40 MG/4 ML VIAL IV SCH ×2 (06:16→18:09)
[2020-04-08] MEDS: BUDESONIDE (INHALATION) 0.5 MG/2 ML NEB NEB SCH ×2 (07:10→19:15)
[2020-04-08] MEDS: cefTRIAXone 1GM/50ML D5W 50 ML IV SCH (08:48)
[2020-04-08] MEDS: SODIUM CHLOR 0.9% PF (SALINE LOCK) 10ML VIAL/SYR IV SCH ×2 (10:00→22:34)
[2020-04-08] MEDS: DexAMETHasone SOD PHOS 10MG/1ML VIAL INJ IV SCH (10:09)
[2020-04-08] MEDS: ENOXAPARIN SOD 80 MG/0.8ML SYRINGE SC SCH ×2 (10:09→22:34)
[2020-04-08] MEDS: FLUCONAZOLE 200MG/100ML 100 ML IV SCH ×2 (10:09→11:00)
[2020-04-08] MEDS: ZINC SULFATE 220mg CAP or TAB PO SCH (10:10)
[2020-04-08] MEDS: ASCORBIC ACID 1,000 MG TAB PO SCH (10:10)
[2020-04-08] MEDS: CHOLECALCIFEROL (VITD3) 2,000 UNIT CAP/TAB PO SCH (10:10)
[2020-04-08] MEDS: FAMOTIDINE (10MG/ML) 2ML VL IV SCH ×2 (10:10→22:34)
[2020-04-08] MEDS: fentaNYL Drip 2500mCg/250mlNS 250 ML IV SCH (12:22)
[2020-04-09] VITALS (85 sets, daily range): BP systolic 91–199; BP diastolic 59–93
[2020-04-09] MEDS: PROPOFOL 100 ML IV SCH ×2 (02:00→11:45)
[2020-04-09] MEDS: fentaNYL Drip 2500mCg/250mlNS 250 ML IV SCH ×2 (05:10→18:12)
[2020-04-09 06:16] LABS: Hematocrit 33.2 % (41.0-53.0); Hemoglobin 11.2 g/dL (13.5-17.5); Mean Corpuscular Hemoglobin 32.5 pg (28.0-32.0); Mean Corpuscular Hgb Conc. 33.8 g/dL (32.0-36.0); Mean Corpuscular Volume 96.1 fL (80.0-100.0); Red Blood Cells 3.45 10^6/uL (4.5-5.90); Red Cell Distribution Width 13.4 % (11.8-14.3); White Blood Cell 15.3 10^3/uL (4.4-10.8)
[2020-04-09] MEDS: FUROSEMIDE 40 MG/4 ML VIAL IV SCH ×2 (06:22→18:05)
[2020-04-09] MEDS: metroNIDAZOLE 500MG/100ML 100 ML IV SCH ×3 (06:22→21:13)
[2020-04-09 06:29] LABS: Band Neutrophils % (manual) 0; Basophils % (manual) 0 (0.0-2.0); Blast Cells 0; Eosinophils % (manual) 0 (0-7); Metamyelocytes % 0; Myelocytes % 0; Promyelocytes % 0; Reactive Lymphocytes 0
[2020-04-09] MEDS: BUDESONIDE (INHALATION) 0.5 MG/2 ML NEB NEB SCH ×2 (06:30→19:31)
[2020-04-09 06:35] LABS: BUN/Creatinine Ratio 46.8; Calcium 8.4 mg/dL (8.5-10.1); Magnesium 2.1 mg/dL (1.6-2.6); Potassium 3.6 mmol/L (3.5-5.1)
[2020-04-09] MEDS: cefTRIAXone 1GM/50ML D5W 50 ML IV SCH (09:00)
[2020-04-09 09:03] LABS: Lymphocytes % (manual) 4 (10.0-50.0); Monocytes % (manual) 7 (0-12)
[2020-04-09] MEDS: DexAMETHasone SOD PHOS 10MG/1ML VIAL INJ IV SCH (10:26)
[2020-04-09] MEDS: FAMOTIDINE (10MG/ML) 2ML VL IV SCH ×2 (10:26→21:13)
[2020-04-09] MEDS: ZINC SULFATE 220mg CAP or TAB PO SCH (10:26)
[2020-04-09] MEDS: SODIUM CHLOR 0.9% PF (SALINE LOCK) 10ML VIAL/SYR IV SCH ×2 (10:26→21:13)
[2020-04-09] MEDS: ENOXAPARIN SOD 80 MG/0.8ML SYRINGE SC SCH ×2 (10:27→21:26)
[2020-04-09] MEDS: ASCORBIC ACID 1,000 MG TAB PO SCH (10:27)
[2020-04-09] MEDS: CHOLECALCIFEROL (VITD3) 2,000 UNIT CAP/TAB PO SCH (10:27)
[2020-04-09] MEDS: FLUCONAZOLE 200MG/100ML 100 ML IV SCH ×2 (13:55→15:17)
[2020-04-10] VITALS (84 sets, daily range): BP systolic 108–193; BP diastolic 62–103
[2020-04-10] MEDS: MIDAZOLAM DRIP 50 mg/50mL 50 ML IV SCH (01:00)
[2020-04-10] MEDS: metroNIDAZOLE 500MG/100ML 100 ML IV SCH ×3 (06:03→22:00)
[2020-04-10] MEDS: FUROSEMIDE 40 MG/4 ML VIAL IV SCH ×2 (06:05→18:00)
[2020-04-10] MEDS: cefTRIAXone 1GM/50ML D5W 50 ML IV SCH (08:35)
[2020-04-10] MEDS: ZINC SULFATE 220mg CAP or TAB PO SCH (10:00)
[2020-04-10] MEDS: DexAMETHasone SOD PHOS 10MG/1ML VIAL INJ IV SCH (10:00)
[2020-04-10] MEDS: FAMOTIDINE (10MG/ML) 2ML VL IV SCH ×2 (10:00→22:00)
[2020-04-10] MEDS: ENOXAPARIN SOD 80 MG/0.8ML SYRINGE SC SCH ×2 (10:00→22:00)
[2020-04-10] MEDS: ASCORBIC ACID 1,000 MG TAB PO SCH (10:00)
[2020-04-10] MEDS: FLUCONAZOLE 200MG/100ML 100 ML IV SCH ×2 (10:00→11:00)
[2020-04-10] MEDS: CHOLECALCIFEROL (VITD3) 2,000 UNIT CAP/TAB PO SCH (10:00)
[2020-04-10] MEDS: SODIUM CHLOR 0.9% PF (SALINE LOCK) 10ML VIAL/SYR IV SCH ×2 (10:00→22:00)
[2020-04-10] MEDS: BUDESONIDE (INHALATION) 0.5 MG/2 ML NEB NEB SCH ×2 (10:00→19:34)
[2020-04-10] MEDS: METOPROLOL TARTRATE 1MG/1ML-5ML VIAL IV PRN ×2 (16:25→23:30)
[2020-04-10] MEDS ORDERED: LORazepam 2MG/ML-1ML VIAL IV ONE (22:00)
[2020-04-11] VITALS (93 sets, daily range): BP systolic 89–179; BP diastolic 53–94
[2020-04-11] MEDS: fentaNYL Drip 2500mCg/250mlNS 250 ML IV SCH (00:30)
[2020-04-11] MEDS: PROPOFOL 100 ML IV SCH (01:00)
[2020-04-11 05:12] LABS: Basophils # (auto) 0 10 ^3/uL (0-0.2); Eosinophils # (auto) 0 10 ^3/uL (0-0.8); Hematocrit 30.8 % (41.0-53.0); Hemoglobin 10.4 g/dL (13.5-17.5); Lymphocytes # (auto) 0.5 10 ^3/uL (0.4-5.4); Lymphocytes % (auto) 5.5 % (10.0-50.0); Mean Corpuscular Hemoglobin 32.7 pg (28.0-32.0); Mean Corpuscular Hgb Conc. 33.9 g/dL (32.0-36.0); Mean Corpuscular Volume 96.4 fL (80.0-100.0); Monocytes % (auto) 9.9 % (0.0-12.0); Neutrophils # (auto) 8.2 10 ^3/uL (1.6-8.6); Neutrophils % (auto) 84.6 % (37.0-80.0); Red Cell Distribution Width 13.6 % (11.8-14.3); White Blood Cell 9.8 10^3/uL (4.4-10.8)
[2020-04-11] MEDS: FUROSEMIDE 40 MG/4 ML VIAL IV SCH ×2 (06:00→18:26)
[2020-04-11] MEDS: metroNIDAZOLE 500MG/100ML 100 ML IV SCH ×3 (06:28→22:16)
[2020-04-11] MEDS: cefTRIAXone 1GM/50ML D5W 50 ML IV SCH (09:34)
[2020-04-11] MEDS: ASCORBIC ACID 1,000 MG TAB PO SCH (09:34)
[2020-04-11] MEDS: ZINC SULFATE 220mg CAP or TAB PO SCH (09:34)
[2020-04-11] MEDS: DexAMETHasone SOD PHOS 10MG/1ML VIAL INJ IV SCH (09:34)
[2020-04-11] MEDS: SODIUM CHLOR 0.9% PF (SALINE LOCK) 10ML VIAL/SYR IV SCH ×2 (09:34→22:16)
[2020-04-11] MEDS: ENOXAPARIN SOD 80 MG/0.8ML SYRINGE SC SCH ×2 (09:34→22:00)
[2020-04-11] MEDS: CHOLECALCIFEROL (VITD3) 2,000 UNIT CAP/TAB PO SCH (09:34)
[2020-04-11] MEDS: FAMOTIDINE (10MG/ML) 2ML VL IV SCH ×2 (09:34→22:16)
[2020-04-11] MEDS: FLUCONAZOLE 200MG/100ML 100 ML IV SCH ×2 (09:45→11:30)
[2020-04-11 09:57] LABS: Calcium 7.9 mg/dL (8.5-10.1); Potassium 3.1 mmol/L (3.5-5.1)
[2020-04-11 09:59] LABS: BUN/Creatinine Ratio 51.3
[2020-04-11] MEDS: BUDESONIDE (INHALATION) 0.5 MG/2 ML NEB NEB SCH ×2 (10:00→18:36)
[2020-04-11] MEDS: POTASSIUM CHL 20MEQ/100ML 100 ML IV SCH ×2 (15:24→16:22)
[2020-04-12] VITALS (99 sets, daily range): BP systolic 71–172; BP diastolic 34–100
[2020-04-12 05:09] LABS: Potassium 3.5 mmol/L (3.5-5.1)
[2020-04-12 05:13] LABS: BUN/Creatinine Ratio 51.2
[2020-04-12] MEDS: metroNIDAZOLE 500MG/100ML 100 ML IV SCH (06:07)
[2020-04-12] MEDS: FUROSEMIDE 40 MG/4 ML VIAL IV SCH (06:08)
[2020-04-12] MEDS: BUDESONIDE (INHALATION) 0.5 MG/2 ML NEB NEB SCH ×2 (06:25→19:25)
[2020-04-12] MEDS: cefTRIAXone 1GM/50ML D5W 50 ML IV SCH (09:24)
[2020-04-12] MEDS: SODIUM CHLOR 0.9% PF (SALINE LOCK) 10ML VIAL/SYR IV SCH ×2 (09:25→22:00)
[2020-04-12] MEDS: FAMOTIDINE (10MG/ML) 2ML VL IV SCH ×2 (09:25→22:00)
[2020-04-12] MEDS: DexAMETHasone SOD PHOS 10MG/1ML VIAL INJ IV SCH (09:25)
[2020-04-12] MEDS: CHOLECALCIFEROL (VITD3) 2,000 UNIT CAP/TAB PO SCH (09:26)
[2020-04-12] MEDS: ASCORBIC ACID 1,000 MG TAB PO SCH (09:26)
[2020-04-12] MEDS: ZINC SULFATE 220mg CAP or TAB PO SCH (09:26)
[2020-04-12] MEDS: ENOXAPARIN SOD 80 MG/0.8ML SYRINGE SC SCH ×2 (09:27→22:00)
[2020-04-12] MEDS ORDERED: NOREPINEPHRINE 8 MG/250ML KIT 250 ML IV ONE (11:21)
[2020-04-12] MEDS ORDERED: ALBUMIN 5% 250 ML IV ONE ×2 (11:21→11:30)
[2020-04-12] MEDS: FLUCONAZOLE 200MG/100ML 100 ML IV SCH ×2 (11:32→12:30)
[2020-04-12] MEDS: NOREPINEPHRINE 8 MG/250ML KIT 250 ML IV SCH (11:45)
[2020-04-12] MEDS: ACETAMINOPHEN 650 mg PER 20.3 mL UD GT PRN (11:59)
[2020-04-13] VITALS (100 sets, daily range): BP systolic 83–162; BP diastolic 54–92
[2020-04-13 05:08] LABS: Basophils # (auto) 0 10 ^3/uL (0-0.2); Basophils % (auto) 0.1 % (0.0-2.0); Eosinophils # (auto) 0 10 ^3/uL (0-0.8); Hemoglobin 10.1 g/dL (13.5-17.5); Lymphocytes # (auto) 0.6 10 ^3/uL (0.4-5.4); Lymphocytes % (auto) 5.2 % (10.0-50.0); Mean Corpuscular Hemoglobin 33.5 pg (28.0-32.0); Mean Corpuscular Hgb Conc. 34.7 g/dL (32.0-36.0); Mean Corpuscular Volume 96.6 fL (80.0-100.0); Monocytes # (auto) 0.8 10 ^3/uL (0-1.3); Monocytes % (auto) 7.9 % (0.0-12.0); Neutrophils # (auto) 9.2 10 ^3/uL (1.6-8.6); Neutrophils % (auto) 86.8 % (37.0-80.0); Red Cell Distribution Width 13.7 % (11.8-14.3); White Blood Cell 10.6 10^3/uL (4.4-10.8)
[2020-04-13 05:37] LABS: Albumin 2.6 g/dL (3.4-5.0); BUN/Creatinine Ratio 51.4; Calcium 8.4 mg/dL (8.5-10.1)
[2020-04-13 05:40] LABS: Bilirubin, Total 0.8 mg/dL (0.2-1.0); Total Protein 6.1 g/dL (6.4-8.2)
[2020-04-13] MEDS: BUDESONIDE (INHALATION) 0.5 MG/2 ML NEB NEB SCH ×2 (06:47→21:56)
[2020-04-13] MEDS: FAMOTIDINE (10MG/ML) 2ML VL IV SCH ×2 (10:16→22:12)
[2020-04-13] MEDS: SODIUM CHLOR 0.9% PF (SALINE LOCK) 10ML VIAL/SYR IV SCH ×2 (10:16→22:12)
[2020-04-13] MEDS: FLUCONAZOLE 200MG/100ML 100 ML IV SCH ×2 (10:16→11:32)
[2020-04-13] MEDS: ZINC SULFATE 220mg CAP or TAB PO SCH (10:16)
[2020-04-13] MEDS: CHOLECALCIFEROL (VITD3) 2,000 UNIT CAP/TAB PO SCH (10:17)
[2020-04-13] MEDS: ASCORBIC ACID 1,000 MG TAB PO SCH (10:17)
[2020-04-13] MEDS: ENOXAPARIN SOD 80 MG/0.8ML SYRINGE SC SCH ×2 (10:17→22:13)
[2020-04-13] MEDS: NOREPINEPHRINE 8 MG/250ML KIT 250 ML IV SCH (11:30)
[2020-04-13] MEDS: POTASSIUM CHL 20MEQ/100ML 100 ML IV SCH ×2 (13:37→16:07)
[2020-04-14] VITALS (98 sets, daily range): BP systolic 86–161; BP diastolic 56–93
[2020-04-14] MEDS: ACETAMINOPHEN 650 mg PER 20.3 mL UD GT PRN
[2020-04-14 05:48] LABS: Basophils # (auto) 0 10 ^3/uL (0-0.2); Basophils % (auto) 0.2 % (0.0-2.0); Eosinophils # (auto) 0 10 ^3/uL (0-0.8); Eosinophils % (auto) 0.2 % (0.0-7.0); Hematocrit 30.1 % (41.0-53.0); Hemoglobin 10.3 g/dL (13.5-17.5); Lymphocytes # (auto) 0.6 10 ^3/uL (0.4-5.4); Lymphocytes % (auto) 5.7 % (10.0-50.0); Mean Corpuscular Hemoglobin 33.3 pg (28.0-32.0); Mean Corpuscular Hgb Conc. 34.4 g/dL (32.0-36.0); Monocytes # (auto) 0.5 10 ^3/uL (0-1.3); Monocytes % (auto) 5.1 % (0.0-12.0); Neutrophils # (auto) 9.1 10 ^3/uL (1.6-8.6); Neutrophils % (auto) 88.8 % (37.0-80.0); Red Cell Distribution Width 14.3 % (11.8-14.3); White Blood Cell 10.2 10^3/uL (4.4-10.8)
[2020-04-14 06:08] LABS: Albumin 2.4 g/dL (3.4-5.0); Calcium 8.8 mg/dL (8.5-10.1); Magnesium 1.9 mg/dL (1.6-2.6); Potassium 3.1 mmol/L (3.5-5.1)
[2020-04-14 06:14] LABS: BUN/Creatinine Ratio 49.2; Bilirubin, Total 0.7 mg/dL (0.2-1.0); Phosphorus 1.8 mg/dL (2.5-4.90)
[2020-04-14] MEDS: BUDESONIDE (INHALATION) 0.5 MG/2 ML NEB NEB SCH ×2 (10:26→21:56)
[2020-04-14] MEDS: FLUCONAZOLE 200MG/100ML 100 ML IV SCH ×2 (10:33→11:33)
[2020-04-14] MEDS: ENOXAPARIN SOD 80 MG/0.8ML SYRINGE SC SCH ×2 (10:34→22:18)
[2020-04-14] MEDS: SODIUM CHLOR 0.9% PF (SALINE LOCK) 10ML VIAL/SYR IV SCH ×2 (10:34→22:18)
[2020-04-14] MEDS: ASCORBIC ACID 1,000 MG TAB PO SCH (10:34)
[2020-04-14] MEDS: FAMOTIDINE (10MG/ML) 2ML VL IV SCH ×2 (10:34→22:18)
[2020-04-14] MEDS: ZINC SULFATE 220mg CAP or TAB PO SCH (10:34)
[2020-04-14] MEDS: NOREPINEPHRINE 8 MG/250ML KIT 250 ML IV SCH (11:30)
[2020-04-14] MEDS: MIDAZOLAM DRIP 50 mg/50mL 50 ML IV SCH (12:30)
[2020-04-14] MEDS ORDERED: dilTIAZem 25 MG/5 ML VIAL IV ONE (12:45)
[2020-04-14] MEDS ORDERED: LORazepam 2MG/ML-1ML VIAL IV ONE (12:45)
[2020-04-14] MEDS ORDERED: MIDAZOLAM DRIP 50 mg/50mL 50 ML IV ONE ×2 (12:59→14:28)
[2020-04-14] MEDS: CHOLECALCIFEROL (VITD3) 2,000 UNIT CAP/TAB PO SCH (19:32)
[2020-04-15] VITALS (87 sets, daily range): BP systolic 88–139; BP diastolic 29–82
[2020-04-15] MEDS: ACETAMINOPHEN 650 mg PER 20.3 mL UD GT PRN ×2 (00:44→17:21)
[2020-04-15 05:29] LABS: BUN/Creatinine Ratio 42.9; Calcium 8.1 mg/dL (8.5-10.1)
[2020-04-15 06:39] LABS: Potassium 2.9 mmol/L (3.5-5.1)
[2020-04-15] MEDS: BUDESONIDE (INHALATION) 0.5 MG/2 ML NEB NEB SCH ×2 (07:26→21:48)
[2020-04-15] MEDS: POTASSIUM CHL 20MEQ/100ML 100 ML IV SCH ×4 (07:48→15:45)
[2020-04-15] MEDS: FLUCONAZOLE 200MG/100ML 100 ML IV SCH (10:00)
[2020-04-15] MEDS: FAMOTIDINE (10MG/ML) 2ML VL IV SCH ×2 (10:41→22:00)
[2020-04-15] MEDS: SODIUM CHLOR 0.9% PF (SALINE LOCK) 10ML VIAL/SYR IV SCH ×2 (10:41→22:00)
[2020-04-15] MEDS: ZINC SULFATE 220mg CAP or TAB PO SCH (10:41)
[2020-04-15] MEDS: ASCORBIC ACID 1,000 MG TAB PO SCH (10:42)
[2020-04-15] MEDS: ENOXAPARIN SOD 80 MG/0.8ML SYRINGE SC SCH ×2 (10:43→22:00)
[2020-04-15] MEDS: CHOLECALCIFEROL (VITD3) 2,000 UNIT CAP/TAB PO SCH (10:43)
[2020-04-15] MEDS: NOREPINEPHRINE 8 MG/250ML KIT 250 ML IV SCH (11:30)
[2020-04-15] MEDS: MIDAZOLAM DRIP 50 mg/50mL 50 ML IV SCH (12:30)
[2020-04-16] VITALS (91 sets, daily range): BP systolic 99–142; BP diastolic 40–95
[2020-04-16 06:03] LABS: Magnesium 1.8 mg/dL (1.6-2.6); Potassium 3.6 mmol/L (3.5-5.1)
[2020-04-16 06:12] LABS: CRP High Sensitivity 6.35 mg/dL (< 0.3)
[2020-04-16] MEDS: FAMOTIDINE (10MG/ML) 2ML VL IV SCH ×2 (08:47→21:28)
[2020-04-16] MEDS: CHOLECALCIFEROL (VITD3) 2,000 UNIT CAP/TAB PO SCH (08:47)
[2020-04-16] MEDS: ASCORBIC ACID 1,000 MG TAB PO SCH (08:48)
[2020-04-16] MEDS: ENOXAPARIN SOD 80 MG/0.8ML SYRINGE SC SCH ×2 (08:48→21:28)
[2020-04-16] MEDS: SODIUM CHLOR 0.9% PF (SALINE LOCK) 10ML VIAL/SYR IV SCH ×2 (08:48→21:28)
[2020-04-16] MEDS: ZINC SULFATE 220mg CAP or TAB PO SCH (08:48)
[2020-04-16] MEDS: BUDESONIDE (INHALATION) 0.5 MG/2 ML NEB NEB SCH ×2 (10:29→18:09)
[2020-04-16] MEDS: MIDAZOLAM DRIP 50 mg/50mL 50 ML IV SCH (11:00)
[2020-04-16] MEDS: NOREPINEPHRINE 8 MG/250ML KIT 250 ML IV SCH (12:11)
[2020-04-16] MEDS: LORazepam 2MG/ML-1ML VIAL IV PRN ×2 (12:46→21:29)
[2020-04-16 12:49] LABS: Basophils # (auto) 0 10 ^3/uL (0-0.2); Basophils % (auto) 0.2 % (0.0-2.0); Eosinophils # (auto) 0.1 10 ^3/uL (0-0.8); Eosinophils % (auto) 0.9 % (0.0-7.0); Hematocrit 27.2 % (41.0-53.0); Hemoglobin 9.4 g/dL (13.5-17.5); Lymphocytes # (auto) 0.5 10 ^3/uL (0.4-5.4); Lymphocytes % (auto) 7.3 % (10.0-50.0); Mean Corpuscular Hemoglobin 33.8 pg (28.0-32.0); Mean Corpuscular Hgb Conc. 34.7 g/dL (32.0-36.0); Mean Corpuscular Volume 97.4 fL (80.0-100.0); Monocytes # (auto) 0.3 10 ^3/uL (0-1.3); Monocytes % (auto) 3.8 % (0.0-12.0); Neutrophils # (auto) 6.5 10 ^3/uL (1.6-8.6); Neutrophils % (auto) 87.8 % (37.0-80.0); Red Blood Cells 2.79 10^6/uL (4.5-5.90); Red Cell Distribution Width 14.1 % (11.8-14.3); White Blood Cell 7.4 10^3/uL (4.4-10.8)
[2020-04-16 13:15] LABS: Albumin 2.1 g/dL (3.4-5.0); Potassium 3.6 mmol/L (3.5-5.1)
[2020-04-16 13:18] LABS: BUN/Creatinine Ratio 37.3; Bilirubin, Total 0.6 mg/dL (0.2-1.0); Total Protein 5.5 g/dL (6.4-8.2)
[2020-04-16 14:03] LABS: INR 1.4 (0.9-1.15); Partial Thromboplastin Time 32.8 sec (23.0-31.2)
[2020-04-16] MEDS: ACETAMINOPHEN 650 mg PER 20.3 mL UD GT PRN (21:29)
[2020-04-17] VITALS (95 sets, daily range): BP systolic 77–161; BP diastolic 46–90
[2020-04-17] MEDS: BUDESONIDE (INHALATION) 0.5 MG/2 ML NEB NEB SCH ×2 (09:54→21:37)
[2020-04-17] MEDS ORDERED: QUEtiapine FUMARATE 25 MG TAB PO ONE (10:00)
[2020-04-17] MEDS: QUEtiapine FUMARATE 25 MG TAB PO SCH (10:00)
[2020-04-17] MEDS: ENOXAPARIN SOD 80 MG/0.8ML SYRINGE SC SCH ×2 (10:00→21:18)
[2020-04-17] MEDS: ASCORBIC ACID 1,000 MG TAB PO SCH (10:14)
[2020-04-17] MEDS: SODIUM CHLOR 0.9% PF (SALINE LOCK) 10ML VIAL/SYR IV SCH ×2 (10:14→21:17)
[2020-04-17] MEDS: FAMOTIDINE (10MG/ML) 2ML VL IV SCH ×2 (10:14→21:17)
[2020-04-17] MEDS: ZINC SULFATE 220mg CAP or TAB PO SCH (10:14)
[2020-04-17] MEDS: CHOLECALCIFEROL (VITD3) 2,000 UNIT CAP/TAB PO SCH (10:15)
[2020-04-17] MEDS ORDERED: PROPOFOL 100 ML IV ONE (11:22)
[2020-04-17] MEDS: PROPOFOL 100 ML IV SCH ×2 (11:45→23:48)
[2020-04-17 11:49] LABS: Basophils # (auto) 0 10 ^3/uL (0-0.2); Basophils % (auto) 0.7 % (0.0-2.0); Eosinophils # (auto) 0.1 10 ^3/uL (0-0.8); Hematocrit 26.4 % (41.0-53.0); Hemoglobin 8.9 g/dL (13.5-17.5); Lymphocytes # (auto) 0.6 10 ^3/uL (0.4-5.4); Mean Corpuscular Hgb Conc. 33.8 g/dL (32.0-36.0); Mean Corpuscular Volume 97.6 fL (80.0-100.0); Monocytes # (auto) 0.2 10 ^3/uL (0-1.3); Monocytes % (auto) 3.6 % (0.0-12.0); Neutrophils # (auto) 5.4 10 ^3/uL (1.6-8.6); Neutrophils % (auto) 85.7 % (37.0-80.0); Red Cell Distribution Width 14.6 % (11.8-14.3); White Blood Cell 6.3 10^3/uL (4.4-10.8)
[2020-04-17 12:01] LABS: Albumin 1.9 g/dL (3.4-5.0); Potassium 3.1 mmol/L (3.5-5.1)
[2020-04-17 12:06] LABS: BUN/Creatinine Ratio 38.1; Bilirubin, Total 0.5 mg/dL (0.2-1.0); Total Protein 5.4 g/dL (6.4-8.2)
[2020-04-17] MEDS: MIDAZOLAM DRIP 50 mg/50mL 50 ML IV SCH (12:45)
[2020-04-17] MEDS: POTASSIUM CHL 20MEQ/100ML 100 ML IV SCH ×2 (14:15→15:30)
[2020-04-17] MEDS: NOREPINEPHRINE 8 MG/250ML KIT 250 ML IV SCH (21:17)
[2020-04-18] VITALS (101 sets, daily range): BP systolic 80–157; BP diastolic 53–83
[2020-04-18] MEDS: ACETAMINOPHEN 650 mg PER 20.3 mL UD GT PRN ×2 (00:09→16:55)
[2020-04-18] MEDS: MIDAZOLAM DRIP 50 mg/50mL 50 ML IV SCH (01:55)
[2020-04-18] MEDS: BUDESONIDE (INHALATION) 0.5 MG/2 ML NEB NEB SCH ×2 (07:08→22:40)
[2020-04-18 07:11] LABS: Potassium 3.5 mmol/L (3.5-5.1)
[2020-04-18] MEDS: PROPOFOL 100 ML IV SCH ×2 (09:00→19:00)
[2020-04-18] MEDS: FAMOTIDINE (10MG/ML) 2ML VL IV SCH ×2 (10:59→21:39)
[2020-04-18] MEDS: SODIUM CHLOR 0.9% PF (SALINE LOCK) 10ML VIAL/SYR IV SCH ×2 (11:00→21:40)
[2020-04-18] MEDS: ENOXAPARIN SOD 80 MG/0.8ML SYRINGE SC SCH ×3 (11:00→22:00)
[2020-04-18] MEDS: ZINC SULFATE 220mg CAP or TAB PO SCH (11:00)
[2020-04-18] MEDS: QUEtiapine FUMARATE 25 MG TAB PO SCH (11:00)
[2020-04-18] MEDS: ASCORBIC ACID 1,000 MG TAB PO SCH (11:00)
[2020-04-18] MEDS: CHOLECALCIFEROL (VITD3) 2,000 UNIT CAP/TAB PO SCH (11:02)
[2020-04-18] MEDS: NOREPINEPHRINE 8 MG/250ML KIT 250 ML IV SCH (19:15)
[2020-04-19] VITALS (95 sets, daily range): BP systolic 84–152; BP diastolic 55–89
[2020-04-19] MEDS: PROPOFOL 100 ML IV SCH ×3 (02:10→18:54)
[2020-04-19] MEDS: NOREPINEPHRINE 8 MG/250ML KIT 250 ML IV SCH (04:52)
[2020-04-19 05:25] LABS: Hematocrit 26.8 % (41.0-53.0); Hemoglobin 9.4 g/dL (13.5-17.5)
[2020-04-19 05:35] LABS: Magnesium 1.8 mg/dL (1.6-2.6); Potassium 3.1 mmol/L (3.5-5.1)
[2020-04-19] MEDS: BUDESONIDE (INHALATION) 0.5 MG/2 ML NEB NEB SCH ×2 (06:13→19:05)
[2020-04-19] MEDS ORDERED: MAGNESIUM SULFATE 1GM/100ML 100 ML IV ONE (07:30)
[2020-04-19] MEDS: POTASSIUM CHL 20MEQ/100ML 100 ML IV SCH ×2 (07:30→11:04)
[2020-04-19] MEDS ORDERED: POTASSIUM CHL 20MEQ/100ML 200 ML IV ONE (08:07)
[2020-04-19] MEDS ORDERED: LORazepam 2MG/ML-1ML VIAL IV ONE (09:00)
[2020-04-19] MEDS: FAMOTIDINE (10MG/ML) 2ML VL IV SCH ×2 (09:24→21:58)
[2020-04-19] MEDS: ENOXAPARIN SOD 80 MG/0.8ML SYRINGE SC SCH ×2 (09:24→21:59)
[2020-04-19] MEDS: ZINC SULFATE 220mg CAP or TAB PO SCH (09:25)
[2020-04-19] MEDS: QUEtiapine FUMARATE 25 MG TAB PO SCH (09:25)
[2020-04-19] MEDS: CHOLECALCIFEROL (VITD3) 2,000 UNIT CAP/TAB PO SCH (09:26)
[2020-04-19] MEDS: MIDAZOLAM DRIP 50 mg/50mL 50 ML IV SCH ×4 (11:05→22:37)
[2020-04-19] MEDS: SODIUM CHLOR 0.9% PF (SALINE LOCK) 10ML VIAL/SYR IV SCH ×2 (12:32→21:58)
[2020-04-19] MEDS: ASCORBIC ACID 1,000 MG TAB PO SCH (13:12)
[2020-04-19] MEDS ORDERED: POTASSIUM CHLORIDE 40 MEQ, LIDOCAINE 1% (LOCAL ANESTH.) 4 ML in SODIUM CHL 0.9% 250 ML IV ONE (14:30)
[2020-04-20] VITALS (101 sets, daily range): BP systolic 77–135; BP diastolic 48–76
[2020-04-20] MEDS: PROPOFOL 100 ML IV SCH ×4 (00:08→23:45)
[2020-04-20] MEDS: MIDAZOLAM DRIP 50 mg/50mL 50 ML IV SCH ×2 (03:26→12:50)
[2020-04-20] MEDS: BUDESONIDE (INHALATION) 0.5 MG/2 ML NEB NEB SCH ×2 (07:39→18:56)
[2020-04-20] MEDS: QUEtiapine FUMARATE 25 MG TAB PO SCH (10:00)
[2020-04-20] MEDS: SODIUM CHLOR 0.9% PF (SALINE LOCK) 10ML VIAL/SYR IV SCH ×2 (10:04→21:24)
[2020-04-20] MEDS: ASCORBIC ACID 1,000 MG TAB PO SCH (10:04)
[2020-04-20] MEDS: ZINC SULFATE 220mg CAP or TAB PO SCH (10:04)
[2020-04-20] MEDS: FAMOTIDINE (10MG/ML) 2ML VL IV SCH ×2 (10:05→21:24)
[2020-04-20] MEDS: ENOXAPARIN SOD 80 MG/0.8ML SYRINGE SC SCH ×2 (10:05→21:24)
[2020-04-20] MEDS: CHOLECALCIFEROL (VITD3) 2,000 UNIT CAP/TAB PO SCH (10:06)
[2020-04-20] MEDS: NOREPINEPHRINE 8 MG/250ML KIT 250 ML IV SCH (19:15)
[2020-04-21] VITALS (100 sets, daily range): BP systolic 71–157; BP diastolic 45–90
[2020-04-21] MEDS: MIDAZOLAM DRIP 50 mg/50mL 50 ML IV SCH ×2 (01:01→11:37)
[2020-04-21] MEDS: QUEtiapine FUMARATE 25 MG TAB PO SCH (10:00)
[2020-04-21] MEDS: CHOLECALCIFEROL (VITD3) 2,000 UNIT CAP/TAB PO SCH (10:03)
[2020-04-21] MEDS: ENOXAPARIN SOD 80 MG/0.8ML SYRINGE SC SCH ×2 (10:03→22:33)
[2020-04-21] MEDS: ASCORBIC ACID 1,000 MG TAB PO SCH (10:03)
[2020-04-21] MEDS: FAMOTIDINE (10MG/ML) 2ML VL IV SCH ×2 (10:03→22:33)
[2020-04-21] MEDS: SODIUM CHLOR 0.9% PF (SALINE LOCK) 10ML VIAL/SYR IV SCH ×2 (10:04→22:33)
[2020-04-21] MEDS: ZINC SULFATE 220mg CAP or TAB PO SCH (10:04)
[2020-04-21 10:45] LABS: Hematocrit 27.1 % (41.0-53.0); Hemoglobin 9.2 g/dL (13.5-17.5)
[2020-04-21 10:49] LABS: Magnesium 1.8 mg/dL (1.6-2.6); Potassium 3.8 mmol/L (3.5-5.1)
[2020-04-21] MEDS ORDERED: MAGNESIUM SULFATE 1GM/100ML 100 ML IV ONE (11:45)
[2020-04-21] MEDS: BUDESONIDE (INHALATION) 0.5 MG/2 ML NEB NEB SCH ×2 (12:30→19:26)
[2020-04-21] MEDS: PROPOFOL 100 ML IV SCH (16:38)
[2020-04-21] MEDS: NOREPINEPHRINE 8 MG/250ML KIT 250 ML IV SCH (16:39)
[2020-04-22] VITALS (95 sets, daily range): BP systolic 87–134; BP diastolic 35–79
[2020-04-22] MEDS: ACETAMINOPHEN 650 mg PER 20.3 mL UD GT PRN (02:12)
[2020-04-22] MEDS: BUDESONIDE (INHALATION) 0.5 MG/2 ML NEB NEB SCH ×2 (06:54→19:40)
[2020-04-22] MEDS: FAMOTIDINE (10MG/ML) 2ML VL IV SCH ×2 (08:10→22:00)
[2020-04-22] MEDS: QUEtiapine FUMARATE 25 MG TAB PO SCH (08:10)
[2020-04-22] MEDS: ZINC SULFATE 220mg CAP or TAB PO SCH (08:10)
[2020-04-22] MEDS: SODIUM CHLOR 0.9% PF (SALINE LOCK) 10ML VIAL/SYR IV SCH ×2 (08:10→22:00)
[2020-04-22] MEDS: ENOXAPARIN SOD 80 MG/0.8ML SYRINGE SC SCH ×2 (08:11→22:00)
[2020-04-22] MEDS: ASCORBIC ACID 1,000 MG TAB PO SCH (08:11)
[2020-04-22] MEDS: CHOLECALCIFEROL (VITD3) 2,000 UNIT CAP/TAB PO SCH (08:11)
[2020-04-22] MEDS: PROPOFOL 100 ML IV SCH ×3 (10:11→18:53)
[2020-04-22] MEDS: MIDAZOLAM DRIP 50 mg/50mL 50 ML IV SCH ×2 (11:00→23:57)
[2020-04-22] MEDS ORDERED: MAGNESIUM SULFATE 1GM/100ML 100 ML IV ONE (17:15)
[2020-04-22] MEDS: NOREPINEPHRINE 8 MG/250ML KIT 250 ML IV SCH (19:15)
[2020-04-23] VITALS (82 sets, daily range): BP systolic 94–155; BP diastolic 57–87
[2020-04-23] MEDS: PROPOFOL 100 ML IV SCH ×2 (00:24→13:04)
[2020-04-23 05:19] LABS: Potassium 3.5 mmol/L (3.5-5.1)
[2020-04-23 05:23] LABS: BUN/Creatinine Ratio 16.1; Calcium 8.1 mg/dL (8.5-10.1); Magnesium 2.2 mg/dL (1.6-2.6)
[2020-04-23] MEDS: BUDESONIDE (INHALATION) 0.5 MG/2 ML NEB NEB SCH ×2 (06:40→22:36)
[2020-04-23] MEDS: SODIUM CHLOR 0.9% PF (SALINE LOCK) 10ML VIAL/SYR IV SCH ×2 (08:36→22:00)
[2020-04-23] MEDS: ZINC SULFATE 220mg CAP or TAB PO SCH (08:37)
[2020-04-23] MEDS: QUEtiapine FUMARATE 25 MG TAB PO SCH (08:37)
[2020-04-23] MEDS: ENOXAPARIN SOD 80 MG/0.8ML SYRINGE SC SCH (08:38)
[2020-04-23] MEDS: ASCORBIC ACID 1,000 MG TAB PO SCH (08:38)
[2020-04-23] MEDS: CHOLECALCIFEROL (VITD3) 2,000 UNIT CAP/TAB PO SCH (08:38)
[2020-04-23] MEDS ORDERED: PHYTONADIONE (VIT K)10 MG/ML 1ML VIAL SUBCUT ONE (10:45)
[2020-04-23] MEDS: POTASSIUM EFFERVESENT TAB 25 MEQ GT SCH (13:34)
[2020-04-23] MEDS: NOREPINEPHRINE 8 MG/250ML KIT 250 ML IV SCH (17:04)
[2020-04-23] MEDS: FAMOTIDINE (10MG/ML) 2ML VL IV SCH (22:00)
[2020-04-23 23:01] LABS: INR 1.07 (0.9-1.15)
[2020-04-24] VITALS (88 sets, daily range): BP systolic 93–157; BP diastolic 60–85
[2020-04-24 04:52] LABS: Mean Corpuscular Hemoglobin 33.4 pg (28.0-32.0); Mean Corpuscular Hgb Conc. 34.8 g/dL (32.0-36.0); Mean Corpuscular Volume 95.8 fL (80.0-100.0); Red Blood Cells 2.71 10^6/uL (4.5-5.90); Red Cell Distribution Width 14.6 % (11.8-14.3); White Blood Cell 6.8 10^3/uL (4.4-10.8)
[2020-04-24 05:02] LABS: INR 1.06 (0.9-1.15)
[2020-04-24 05:16] LABS: Basophils % (manual) 0 (0.0-2.0); Myelocytes % 0
[2020-04-24 05:17] LABS: Blast Cells 0; Promyelocytes % 0; Reactive Lymphocytes 0
[2020-04-24 06:23] LABS: Band Neutrophils % (manual) 7; Eosinophils % (manual) 3 (0-7); Lymphocytes % (manual) 14 (10.0-50.0); Metamyelocytes % 1; Monocytes % (manual) 8 (0-12)
[2020-04-24] MEDS: PROPOFOL 100 ML IV SCH ×3 (06:28→12:35)
[2020-04-24] MEDS: BUDESONIDE (INHALATION) 0.5 MG/2 ML NEB NEB SCH ×2 (06:30→20:14)
[2020-04-24] MEDS: NOREPINEPHRINE 8 MG/250ML KIT 250 ML IV SCH ×2 (08:10→08:12)
[2020-04-24] MEDS: ACETAMINOPHEN 650 mg PER 20.3 mL UD GT PRN (09:00)
[2020-04-24] MEDS: QUEtiapine FUMARATE 25 MG TAB PO SCH (10:00)
[2020-04-24] MEDS: POTASSIUM EFFERVESENT TAB 25 MEQ GT SCH (10:00)
[2020-04-24] MEDS: ZINC SULFATE 220mg CAP or TAB PO SCH (10:00)
[2020-04-24] MEDS: SODIUM CHLOR 0.9% PF (SALINE LOCK) 10ML VIAL/SYR IV SCH ×2 (10:29→22:21)
[2020-04-24] MEDS: FAMOTIDINE (10MG/ML) 2ML VL IV SCH (10:29)
[2020-04-24] MEDS: ASCORBIC ACID 1,000 MG TAB PO SCH (10:30)
[2020-04-24] MEDS: CHOLECALCIFEROL (VITD3) 2,000 UNIT CAP/TAB PO SCH (10:30)
[2020-04-24] MEDS ORDERED: ceFAZolin 1GM/50ML 50 ML IV ONE (10:39)
[2020-04-24] MEDS ORDERED: POTASSIUM CHL 20MEQ/100ML 100 ML IV ONE (12:00)
[2020-04-24] MEDS: PANTOPRAZOLE 40 MG/10 ML VIAL INJ IV SCH (22:21)
[2020-04-25] VITALS (94 sets, daily range): BP systolic 81–174; BP diastolic 48–87
[2020-04-25] MEDS: NOREPINEPHRINE 8 MG/250ML KIT 250 ML IV SCH (00:20)
[2020-04-25] MEDS: PROPOFOL 100 ML IV SCH ×3 (02:46→13:00)
[2020-04-25 04:06] LABS: Hematocrit 24.2 % (41.0-53.0); Hemoglobin 8.3 g/dL (13.5-17.5); Mean Corpuscular Hgb Conc. 34.4 g/dL (32.0-36.0); Mean Corpuscular Volume 95.8 fL (80.0-100.0); Red Blood Cells 2.53 10^6/uL (4.5-5.90); Red Cell Distribution Width 14.4 % (11.8-14.3); White Blood Cell 7.1 10^3/uL (4.4-10.8)
[2020-04-25 04:16] LABS: Basophils % (manual) 0 (0.0-2.0); Blast Cells 0; Metamyelocytes % 0; Myelocytes % 0; Promyelocytes % 0; Reactive Lymphocytes 0
[2020-04-25 04:46] LABS: Band Neutrophils % (manual) 8; Eosinophils % (manual) 1 (0-7); Lymphocytes % (manual) 27 (10.0-50.0); Monocytes % (manual) 8 (0-12)
[2020-04-25] MEDS: BUDESONIDE (INHALATION) 0.5 MG/2 ML NEB NEB SCH ×2 (08:10→22:13)
[2020-04-25 09:36] LABS: Potassium 3.7 mmol/L (3.5-5.1)
[2020-04-25 09:40] LABS: BUN/Creatinine Ratio 22.4; Calcium 7.9 mg/dL (8.5-10.1)
[2020-04-25] MEDS: CHOLECALCIFEROL (VITD3) 2,000 UNIT CAP/TAB PO SCH (10:00)
[2020-04-25] MEDS: ASCORBIC ACID 1,000 MG TAB PO SCH (10:00)
[2020-04-25] MEDS: SODIUM CHLOR 0.9% PF (SALINE LOCK) 10ML VIAL/SYR IV SCH ×2 (10:00→21:54)
[2020-04-25] MEDS: PANTOPRAZOLE 40 MG/10 ML VIAL INJ IV SCH ×2 (10:00→21:56)
[2020-04-25] MEDS: ZINC SULFATE 220mg CAP or TAB PO SCH (10:00)
[2020-04-25] MEDS: QUEtiapine FUMARATE 25 MG TAB PO SCH (10:00)
[2020-04-25] MEDS: POTASSIUM EFFERVESENT TAB 25 MEQ GT SCH (10:00)
[2020-04-25] MEDS: fentaNYL Drip 2500mCg/250mlNS 250 ML IV SCH (20:12)
[2020-04-25] MEDS: ENOXAPARIN SOD 60 MG/0.6 ML SYRINGE SC SCH (21:51)
[2020-04-26] VITALS (99 sets, daily range): BP systolic 84–150; BP diastolic 50–97
[2020-04-26 04:44] LABS: Hemoglobin 8.3 g/dL (13.5-17.5)
[2020-04-26 05:02] LABS: Potassium 3.6 mmol/L (3.5-5.1)
[2020-04-26] MEDS: BUDESONIDE (INHALATION) 0.5 MG/2 ML NEB NEB SCH ×2 (06:29→18:45)
[2020-04-26] MEDS: POTASSIUM EFFERVESENT TAB 25 MEQ GT SCH (10:00)
[2020-04-26] MEDS: ASCORBIC ACID 1,000 MG TAB PO SCH (10:00)
[2020-04-26] MEDS: QUEtiapine FUMARATE 25 MG TAB PO SCH (10:00)
[2020-04-26] MEDS: PANTOPRAZOLE 40 MG/10 ML VIAL INJ IV SCH ×2 (10:00→21:30)
[2020-04-26] MEDS: ENOXAPARIN SOD 60 MG/0.6 ML SYRINGE SC SCH ×2 (10:00→21:33)
[2020-04-26] MEDS: CHOLECALCIFEROL (VITD3) 2,000 UNIT CAP/TAB PO SCH (10:00)
[2020-04-26] MEDS: ZINC SULFATE 220mg CAP or TAB PO SCH (10:00)
[2020-04-26] MEDS: SODIUM CHLOR 0.9% PF (SALINE LOCK) 10ML VIAL/SYR IV SCH ×2 (10:00→21:30)
[2020-04-26] MEDS: ACETAMINOPHEN 650 mg PER 20.3 mL UD GT PRN (13:30)
[2020-04-26] MEDS: NOREPINEPHRINE 8 MG/250ML KIT 250 ML IV SCH (19:15)
[2020-04-26] MEDS: fentaNYL Drip 2500mCg/250mlNS 250 ML IV SCH (21:30)
[2020-04-27] VITALS (97 sets, daily range): BP systolic 79–158; BP diastolic 40–99
[2020-04-27] MEDS: BUDESONIDE (INHALATION) 0.5 MG/2 ML NEB NEB SCH ×2 (06:57→19:32)
[2020-04-27] MEDS: QUEtiapine FUMARATE 25 MG TAB PO SCH (10:00)
[2020-04-27] MEDS: PANTOPRAZOLE 40 MG/10 ML VIAL INJ IV SCH ×2 (10:00→22:25)
[2020-04-27] MEDS: SODIUM CHLOR 0.9% PF (SALINE LOCK) 10ML VIAL/SYR IV SCH ×2 (10:00→22:25)
[2020-04-27] MEDS: ENOXAPARIN SOD 60 MG/0.6 ML SYRINGE SC SCH ×2 (10:00→22:26)
[2020-04-27] MEDS: ZINC SULFATE 220mg CAP or TAB PO SCH (10:00)
[2020-04-27] MEDS: ASCORBIC ACID 1,000 MG TAB PO SCH (10:00)
[2020-04-27] MEDS: CHOLECALCIFEROL (VITD3) 2,000 UNIT CAP/TAB PO SCH (10:00)
[2020-04-27] MEDS: POTASSIUM EFFERVESENT TAB 25 MEQ GT SCH (10:00)
[2020-04-27] MEDS: ACETAMINOPHEN 650 mg PER 20.3 mL UD GT PRN (10:30)
[2020-04-27] MEDS: PROPOFOL 100 ML IV SCH (12:45)
[2020-04-27] MEDS: NOREPINEPHRINE 8 MG/250ML KIT 250 ML IV SCH (13:51)
[2020-04-27] MEDS: fentaNYL Drip 2500mCg/250mlNS 250 ML IV SCH (22:28)
[2020-04-28] VITALS (87 sets, daily range): BP systolic 85–175; BP diastolic 50–103
[2020-04-28] MEDS ORDERED: LORazepam 2MG/ML-1ML VIAL ONE (06:09)
[2020-04-28] MEDS: BUDESONIDE (INHALATION) 0.5 MG/2 ML NEB NEB SCH ×2 (07:34→22:00)
[2020-04-28] MEDS: PANTOPRAZOLE 40 MG/10 ML VIAL INJ IV SCH ×2 (10:00→22:00)
[2020-04-28] MEDS: ENOXAPARIN SOD 60 MG/0.6 ML SYRINGE SC SCH ×2 (10:25→23:04)
[2020-04-28] MEDS: QUEtiapine FUMARATE 25 MG TAB PO SCH (10:25)
[2020-04-28] MEDS: ASCORBIC ACID 1,000 MG TAB PO SCH (10:25)
[2020-04-28] MEDS: ZINC SULFATE 220mg CAP or TAB PO SCH (10:25)
[2020-04-28] MEDS: CHOLECALCIFEROL (VITD3) 2,000 UNIT CAP/TAB PO SCH (10:25)
[2020-04-28] MEDS: SODIUM CHLOR 0.9% PF (SALINE LOCK) 10ML VIAL/SYR IV SCH ×2 (10:25→23:03)
[2020-04-28] MEDS: POTASSIUM EFFERVESENT TAB 25 MEQ GT SCH (10:25)
[2020-04-28 11:56] LABS: Hematocrit 25.8 % (41.0-53.0); Hemoglobin 8.7 g/dL (13.5-17.5); Mean Corpuscular Hemoglobin 32.3 pg (28.0-32.0); Mean Corpuscular Hgb Conc. 33.7 g/dL (32.0-36.0); Mean Corpuscular Volume 95.8 fL (80.0-100.0); Red Blood Cells 2.69 10^6/uL (4.5-5.90); Red Cell Distribution Width 14.7 % (11.8-14.3); White Blood Cell 10.3 10^3/uL (4.4-10.8)
[2020-04-28 12:06] LABS: Basophils % (manual) 0 (0.0-2.0); Blast Cells 0; Metamyelocytes % 0; Promyelocytes % 0; Reactive Lymphocytes 0
[2020-04-28 12:17] LABS: BUN/Creatinine Ratio 46.9; Calcium 8.4 mg/dL (8.5-10.1); Potassium 3.4 mmol/L (3.5-5.1)
[2020-04-28 12:33] LABS: Band Neutrophils % (manual) 5; Eosinophils % (manual) 1 (0-7); Lymphocytes % (manual) 15 (10.0-50.0); Monocytes % (manual) 5 (0-12); Myelocytes % 1
[2020-04-28] MEDS: PROPOFOL 100 ML IV SCH (12:45)
[2020-04-28] MEDS ORDERED: NOREPINEPHRINE 8 MG/250ML KIT 250 ML IV SCH (15:00)
[2020-04-28] MEDS: fentaNYL Drip 2500mCg/250mlNS 250 ML IV SCH (18:15)
[2020-04-28] MEDS: ACETAMINOPHEN 650 mg PER 20.3 mL UD GT PRN (23:05)
[2020-04-29] VITALS (73 sets, daily range): BP systolic 86–167; BP diastolic 48–102
[2020-04-29] MEDS: fentaNYL Drip 2500mCg/250mlNS 250 ML IV SCH (04:27)
[2020-04-29 07:32] LABS: Hemoglobin 7.4 g/dL (13.5-17.5); White Blood Cell 8.1 10^3/uL (4.4-10.8)
[2020-04-29 07:35] LABS: Hematocrit 21.3 % (41.0-53.0); Mean Corpuscular Hemoglobin 33.3 pg (28.0-32.0); Mean Corpuscular Hgb Conc. 34.7 g/dL (32.0-36.0); Mean Corpuscular Volume 96.1 fL (80.0-100.0); Red Blood Cells 2.21 10^6/uL (4.5-5.90); Red Cell Distribution Width 14.6 % (11.8-14.3)
[2020-04-29] MEDS: BUDESONIDE (INHALATION) 0.5 MG/2 ML NEB NEB SCH ×2 (07:40→18:58)
[2020-04-29 07:46] LABS: INR 1.17 (0.9-1.15); Partial Thromboplastin Time 31.2 sec (23.0-31.2)
[2020-04-29 07:47] LABS: Band Neutrophils % (manual) 0; Basophils % (manual) 0 (0.0-2.0); Blast Cells 0; Reactive Lymphocytes 0
[2020-04-29 07:57] LABS: BUN/Creatinine Ratio 55.6; Calcium 8.1 mg/dL (8.5-10.1)
[2020-04-29 08:35] LABS: Eosinophils % (manual) 2 (0-7); Lymphocytes % (manual) 12 (10.0-50.0); Metamyelocytes % 5; Monocytes % (manual) 12 (0-12); Myelocytes % 3; Promyelocytes % 1
[2020-04-29] MEDS: PANTOPRAZOLE 40 MG/10 ML VIAL INJ IV SCH ×2 (10:00→21:55)
[2020-04-29] MEDS: SODIUM CHLOR 0.9% PF (SALINE LOCK) 10ML VIAL/SYR IV SCH ×3 (10:00→21:55)
[2020-04-29] MEDS: POTASSIUM EFFERVESENT TAB 25 MEQ GT SCH (11:30)
[2020-04-29] MEDS: QUEtiapine FUMARATE 25 MG TAB PO SCH (11:30)
[2020-04-29] MEDS: ZINC SULFATE 220mg CAP or TAB PO SCH (11:30)
[2020-04-29] MEDS: CHOLECALCIFEROL (VITD3) 2,000 UNIT CAP/TAB PO SCH (11:30)
[2020-04-29] MEDS: ASCORBIC ACID 1,000 MG TAB PO SCH (11:30)
[2020-04-29] MEDS ORDERED: LIDOCAINE 1% (LOCAL ANESTH.) PF 5ml SDV ID ONE (11:30)
[2020-04-29] MEDS ORDERED: POTASSIUM EFFERVESENT TAB 25 MEQ ONE (11:38)
[2020-04-29] MEDS: PROPOFOL 100 ML IV SCH (12:45)
[2020-04-29] MEDS ORDERED: POTASSIUM EFFERVESENT TAB 25 MEQ PO ONE (14:15)
[2020-04-29] MEDS: APIXABAN 5 MG TAB PO SCH (21:57)
[2020-04-29] MEDS: ACETAMINOPHEN 650 mg PER 20.3 mL UD GT PRN (21:59)
[2020-04-29] MEDS: METOPROLOL TARTRATE 1MG/1ML-5ML VIAL IV PRN (22:43)
[2020-04-30] VITALS (70 sets, daily range): BP systolic 71–175; BP diastolic 44–112
[2020-04-30] MEDS: ACETAMINOPHEN 650 mg PER 20.3 mL UD GT PRN ×3 (00:55→18:50)
[2020-04-30] MEDS: METOPROLOL TARTRATE 1MG/1ML-5ML VIAL IV PRN ×3 (02:59→14:18)
[2020-04-30 05:44] LABS: Magnesium 1.5 mg/dL (1.6-2.6)
[2020-04-30] MEDS: BUDESONIDE (INHALATION) 0.5 MG/2 ML NEB NEB SCH ×2 (07:20→18:43)
[2020-04-30] MEDS: POTASSIUM EFFERVESENT TAB 25 MEQ GT SCH ×2 (09:54→21:26)
[2020-04-30] MEDS: PANTOPRAZOLE 40 MG/10 ML VIAL INJ IV SCH ×2 (09:56→21:29)
[2020-04-30] MEDS: ZINC SULFATE 220mg CAP or TAB PO SCH (09:56)
[2020-04-30] MEDS: APIXABAN 5 MG TAB PO SCH ×2 (09:57→21:26)
[2020-04-30] MEDS: SODIUM CHLOR 0.9% PF (SALINE LOCK) 10ML VIAL/SYR IV SCH ×4 (10:00→21:27)
[2020-04-30] MEDS: QUEtiapine FUMARATE 25 MG TAB PO SCH (10:03)
[2020-04-30] MEDS: ASCORBIC ACID 1,000 MG TAB PO SCH (10:03)
[2020-04-30] MEDS: CHOLECALCIFEROL (VITD3) 2,000 UNIT CAP/TAB PO SCH (10:03)
[2020-04-30] MEDS ORDERED: MAGNESIUM SULFATE 1GM/100ML 100 ML IV ONE (10:30)
[2020-04-30] MEDS ORDERED: POTASSIUM EFFERVESENT TAB 25 MEQ GT ONE (10:30)
[2020-04-30 12:20] LABS: Hematocrit 27.7 % (41.0-53.0); Hemoglobin 9.1 g/dL (13.5-17.5); Mean Corpuscular Hemoglobin 32.4 pg (28.0-32.0); Mean Corpuscular Hgb Conc. 32.7 g/dL (32.0-36.0); Mean Corpuscular Volume 98.9 fL (80.0-100.0); Red Cell Distribution Width 15.1 % (11.8-14.3)
[2020-04-30 12:25] LABS: Basophils % (manual) 0 (0.0-2.0); Blast Cells 0; Eosinophils % (manual) 0 (0-7); Myelocytes % 0; Promyelocytes % 0; Reactive Lymphocytes 0
[2020-04-30 12:41] LABS: Band Neutrophils % (manual) 1; Lymphocytes % (manual) 9 (10.0-50.0); Metamyelocytes % 3; Monocytes % (manual) 8 (0-12)
[2020-04-30] MEDS ORDERED: METOPROLOL TARTRATE 25 MG TAB PO ONE (14:00)
[2020-04-30] MEDS ORDERED: cefTRIAXone 1GM/50ML D5W 50 ML IV ONE (14:00)
[2020-04-30] MEDS ORDERED: AZITHROMYCIN 500MG/ 250ML 250 ML IV ONE (15:00)
[2020-04-30] MEDS: fentaNYL Drip 2500mCg/250mlNS 250 ML IV SCH (19:30)
[2020-04-30] MEDS: METOPROLOL TARTRATE 25 MG TAB PO SCH (21:26)
[2020-05-01] VITALS (79 sets, daily range): BP systolic 66–176; BP diastolic 36–109
[2020-05-01] MEDS: METOPROLOL TARTRATE 1MG/1ML-5ML VIAL IV PRN ×3 (00:35→17:37)
[2020-05-01] MEDS ORDERED: TEMAZEPAM 15 MG CAP PO ONE (00:45)
[2020-05-01] MEDS: ACETAMINOPHEN 650 mg PER 20.3 mL UD GT PRN ×2 (04:40→17:01)
[2020-05-01 05:25] LABS: Magnesium 2.1 mg/dL (1.6-2.6); Potassium 4.7 mmol/L (3.5-5.1)
[2020-05-01] MEDS: BUDESONIDE (INHALATION) 0.5 MG/2 ML NEB NEB SCH ×2 (06:35→19:05)
[2020-05-01] MEDS: fentaNYL Drip 2500mCg/250mlNS 250 ML IV SCH (07:35)
[2020-05-01] MEDS: cefTRIAXone 1GM/50ML D5W 50 ML IV SCH (08:01)
[2020-05-01] MEDS: PANTOPRAZOLE 40 MG/10 ML VIAL INJ IV SCH (09:43)
[2020-05-01] MEDS: AZITHROMYCIN 500MG/ 250ML 250 ML IV SCH (09:43)
[2020-05-01] MEDS: POTASSIUM EFFERVESENT TAB 25 MEQ GT SCH (09:43)
[2020-05-01] MEDS: SODIUM CHLOR 0.9% PF (SALINE LOCK) 10ML VIAL/SYR IV SCH ×4 (09:43→21:23)
[2020-05-01] MEDS: APIXABAN 5 MG TAB PO SCH ×2 (09:44→21:23)
[2020-05-01] MEDS: ZINC SULFATE 220mg CAP or TAB PO SCH (09:44)
[2020-05-01] MEDS: METOPROLOL TARTRATE 25 MG TAB PO SCH ×2 (09:45→21:23)
[2020-05-01] MEDS: ASCORBIC ACID 1,000 MG TAB PO SCH (09:47)
[2020-05-01] MEDS: CHOLECALCIFEROL (VITD3) 2,000 UNIT CAP/TAB PO SCH (09:47)
[2020-05-01] MEDS: QUEtiapine FUMARATE 25 MG TAB PO SCH (09:47)
[2020-05-01] MEDS ORDERED: NOREPINEPHRINE 8 MG/250ML KIT 250 ML IV ONE (10:49)
[2020-05-01] MEDS: NOREPINEPHRINE 8 MG/250ML KIT 250 ML IV SCH (11:45)
[2020-05-01] MEDS: LORazepam 2MG/ML-1ML VIAL IV PRN ×2 (14:27→21:24)
[2020-05-01] MEDS: PANTOPRAZOLE 40 MG TAB PO SCH (21:24)
[2020-05-02] VITALS (98 sets, daily range): BP systolic 76–180; BP diastolic 45–119
[2020-05-02] MEDS: LORazepam 2MG/ML-1ML VIAL IV PRN ×2 (01:59→18:13)
[2020-05-02 05:03] LABS: Hematocrit 22.2 % (41.0-53.0); Hemoglobin 7.5 g/dL (13.5-17.5); Mean Corpuscular Hemoglobin 32.4 pg (28.0-32.0); Mean Corpuscular Volume 95.4 fL (80.0-100.0); Red Blood Cells 2.32 10^6/uL (4.5-5.90); Red Cell Distribution Width 14.4 % (11.8-14.3); White Blood Cell 13.6 10^3/uL (4.4-10.8)
[2020-05-02] MEDS ORDERED: LORazepam 2MG/ML-1ML VIAL IV PRN (05:15)
[2020-05-02] MEDS ORDERED: LORazepam 2MG/ML-1ML VIAL ONE (05:26)
[2020-05-02 05:33] LABS: Calcium 8.2 mg/dL (8.5-10.1); Magnesium 1.9 mg/dL (1.6-2.6)
[2020-05-02 05:35] LABS: BUN/Creatinine Ratio 38.9
[2020-05-02 06:55] LABS: Basophils % (manual) 0 (0.0-2.0); Blast Cells 0; Promyelocytes % 0; Reactive Lymphocytes 0
[2020-05-02] MEDS: BUDESONIDE (INHALATION) 0.5 MG/2 ML NEB NEB SCH ×2 (07:05→22:07)
[2020-05-02 08:13] LABS: Band Neutrophils % (manual) 1; Eosinophils % (manual) 1 (0-7); Lymphocytes % (manual) 9 (10.0-50.0); Metamyelocytes % 4; Monocytes % (manual) 8 (0-12); Myelocytes % 2
[2020-05-02] MEDS: cefTRIAXone 1GM/50ML D5W 50 ML IV SCH (08:42)
[2020-05-02] MEDS: QUEtiapine FUMARATE 25 MG TAB PO SCH ×2 (09:22→22:02)
[2020-05-02] MEDS: ASCORBIC ACID 1,000 MG TAB PO SCH (09:22)
[2020-05-02] MEDS: APIXABAN 5 MG TAB PO SCH ×2 (09:22→22:03)
[2020-05-02] MEDS: PANTOPRAZOLE 40 MG TAB PO SCH ×2 (09:23→22:02)
[2020-05-02] MEDS: CHOLECALCIFEROL (VITD3) 2,000 UNIT CAP/TAB PO SCH (09:23)
[2020-05-02] MEDS: SODIUM CHLOR 0.9% PF (SALINE LOCK) 10ML VIAL/SYR IV SCH ×4 (09:23→22:02)
[2020-05-02] MEDS: AZITHROMYCIN 500MG/ 250ML 250 ML IV SCH (09:23)
[2020-05-02] MEDS: METOPROLOL TARTRATE 25 MG TAB PO SCH ×2 (10:00→22:03)
[2020-05-02] MEDS ORDERED: MAGNESIUM SULFATE 1GM/100ML 100 ML IV ONE (14:00)
[2020-05-02] MEDS: NOREPINEPHRINE 8 MG/250ML KIT 250 ML IV SCH (15:40)
[2020-05-02] MEDS: fentaNYL Drip 2500mCg/250mlNS 250 ML IV SCH (18:12)
[2020-05-02] MEDS: MAGNESIUM OXIDE 400 MG TAB PO SCH (22:03)
[2020-05-03] VITALS (102 sets, daily range): BP systolic 78–167; BP diastolic 47–99
[2020-05-03] MEDS: LORazepam 2MG/ML-1ML VIAL IV PRN ×3 (04:18→18:25)
[2020-05-03 05:35] LABS: Red Cell Distribution Width 14.2 % (11.8-14.3)
[2020-05-03 05:38] LABS: Hematocrit 20.5 % (41.0-53.0); Mean Corpuscular Hemoglobin 32.1 pg (28.0-32.0); Mean Corpuscular Hgb Conc. 33.7 g/dL (32.0-36.0); Mean Corpuscular Volume 95.2 fL (80.0-100.0); Red Blood Cells 2.15 10^6/uL (4.5-5.90); White Blood Cell 11.1 10^3/uL (4.4-10.8)
[2020-05-03 05:49] LABS: Hemoglobin 6.9 g/dL (13.5-17.5)
[2020-05-03 05:51] LABS: Basophils % (manual) 0 (0.0-2.0)
[2020-05-03 05:52] LABS: Blast Cells 0; Myelocytes % 0; Promyelocytes % 0; Reactive Lymphocytes 0
[2020-05-03] MEDS: ACETAMINOPHEN 650 mg PER 20.3 mL UD GT PRN ×2 (06:22→18:04)
[2020-05-03] MEDS: BUDESONIDE (INHALATION) 0.5 MG/2 ML NEB NEB SCH ×2 (07:48→22:00)
[2020-05-03 08:08] LABS: Band Neutrophils % (manual) 1; Eosinophils % (manual) 4 (0-7); Lymphocytes % (manual) 15 (10.0-50.0); Metamyelocytes % 2; Monocytes % (manual) 6 (0-12)
[2020-05-03 08:45] LABS: Potassium 3.7 mmol/L (3.5-5.1)
[2020-05-03] MEDS: QUEtiapine FUMARATE 25 MG TAB PO SCH ×2 (08:45→22:00)
[2020-05-03] MEDS: MAGNESIUM OXIDE 400 MG TAB PO SCH ×2 (08:46→22:00)
[2020-05-03] MEDS: METOPROLOL TARTRATE 25 MG TAB PO SCH ×2 (08:47→20:45)
[2020-05-03] MEDS: ASCORBIC ACID 1,000 MG TAB PO SCH (08:48)
[2020-05-03 08:53] LABS: Albumin 1.7 g/dL (3.4-5.0); BUN/Creatinine Ratio 37.1; Bilirubin, Total 0.5 mg/dL (0.2-1.0)
[2020-05-03] MEDS: cefTRIAXone 1GM/50ML D5W 50 ML IV SCH (09:00)
[2020-05-03] MEDS: AZITHROMYCIN 500MG/ 250ML 250 ML IV SCH (10:00)
[2020-05-03] MEDS: SODIUM CHLOR 0.9% PF (SALINE LOCK) 10ML VIAL/SYR IV SCH ×4 (10:00→23:12)
[2020-05-03] MEDS: APIXABAN 5 MG TAB PO SCH ×2 (10:00→22:00)
[2020-05-03] MEDS: PANTOPRAZOLE 40 MG TAB PO SCH ×2 (10:00→22:00)
[2020-05-03] MEDS: CHOLECALCIFEROL (VITD3) 2,000 UNIT CAP/TAB PO SCH (10:00)
[2020-05-03 10:52] LABS: Hematocrit 18.8 % (41.0-53.0)
[2020-05-03 11:25] LABS: Hemoglobin 6.4 g/dL (13.5-17.5)
[2020-05-03] MEDS: NOREPINEPHRINE 8 MG/250ML KIT 250 ML IV SCH (11:45)
[2020-05-03] MEDS: PIPERACILLIN-TAZOB 3.375GM 100 ML IV SCH (18:00)
[2020-05-03] MEDS: fentaNYL Drip 2500mCg/250mlNS 250 ML IV SCH (19:40)
[2020-05-04] VITALS (28 sets, daily range): BP systolic 108–155; BP diastolic 64–97
[2020-05-04 05:14] LABS: Hemoglobin 9.5 g/dL (13.5-17.5); Mean Corpuscular Hemoglobin 31.6 pg (28.0-32.0); Mean Corpuscular Hgb Conc. 34.1 g/dL (32.0-36.0); Mean Corpuscular Volume 92.7 fL (80.0-100.0); Red Blood Cells 3.02 10^6/uL (4.5-5.90); Red Cell Distribution Width 14.9 % (11.8-14.3); White Blood Cell 9.5 10^3/uL (4.4-10.8)
[2020-05-04 05:22] LABS: BUN/Creatinine Ratio 33.3; Calcium 7.9 mg/dL (8.5-10.1); Potassium 3.7 mmol/L (3.5-5.1)
[2020-05-04 05:24] LABS: Basophils % (manual) 0 (0.0-2.0); Blast Cells 0; Promyelocytes % 0; Reactive Lymphocytes 0
[2020-05-04] MEDS: PIPERACILLIN-TAZOB 3.375GM 100 ML IV SCH ×2 (05:47)
[2020-05-04] MEDS: BUDESONIDE (INHALATION) 0.5 MG/2 ML NEB NEB SCH (06:30)
[2020-05-04 12:32] LABS: Band Neutrophils % (manual) 2; Eosinophils % (manual) 6 (0-7); Lymphocytes % (manual) 13 (10.0-50.0); Monocytes % (manual) 8 (0-12)
[2020-05-04 12:33] LABS: Metamyelocytes % 2; Myelocytes % 2
[2020-05-06] MEDS ORDERED: APIXABAN 5 MG TAB PO SCH (22:00)
== END 2020-05-04 18:18 | DRG 4 ==
LOC: ER 12:47 → TELE 17:24 → TELE-WESTW 03-11 22:21 → TELE-CENTR 03-13 08:27 → TELE-E-ADS 03-15 10:37 → ICU WEST 03-16 21:20
PROVIDERS: ADMIT Hospitalist; ATTEND Internal Medicine
PROC: XW13325 Transfusion of Convalescent Plasma (Nonautologous) into Peripheral Vein, Percutaneous Approach, New Technology Group 5 (ICD-10-PCS; 2020-03-10)
PROC: XW033E5 Introduction of Remdesivir Anti-infective into Peripheral Vein, Percutaneous Approach, New Technology Group 5 (ICD-10-PCS; 2020-03-12)
PROC: 5A09357 Assistance with Respiratory Ventilation, Less than 24 Consecutive Hours, Continuous Positive Airway Pressure (ICD-10-PCS; 2020-03-15)
PROC: 5A1955Z Respiratory Ventilation, Greater than 96 Consecutive Hours (ICD-10-PCS; 2020-03-16)
PROC: 0BH17EZ Insertion of Endotracheal Airway into Trachea, Via Natural or Artificial Opening (ICD-10-PCS; 2020-03-16)
PROC: 5A09457 Assistance with Respiratory Ventilation, 24-96 Consecutive Hours, Continuous Positive Airway Pressure (ICD-10-PCS; 2020-03-27)
PROC: 5A1955Z Respiratory Ventilation, Greater than 96 Consecutive Hours (ICD-10-PCS; 2020-03-29)
PROC: 0BH17EZ Insertion of Endotracheal Airway into Trachea, Via Natural or Artificial Opening (ICD-10-PCS; 2020-03-29)
PROC: 06HY33Z Insertion of Infusion Device into Lower Vein, Percutaneous Approach (ICD-10-PCS; 2020-03-29)
PROC: 0DB68ZX Excision of Stomach, Via Natural or Artificial Opening Endoscopic, Diagnostic (ICD-10-PCS; 2020-04-24)
PROC: 0DH63UZ Insertion of Feeding Device into Stomach, Percutaneous Approach (ICD-10-PCS; principal; 2020-04-24 11:05)
PROC: 0B110F4 Bypass Trachea to Cutaneous with Tracheostomy Device, Open Approach (ICD-10-PCS; 2020-04-24 11:05)
PROC: 06HY33Z Insertion of Infusion Device into Lower Vein, Percutaneous Approach (ICD-10-PCS; 2020-04-29)
PROC: 0T2BX0Z Change Drainage Device in Bladder, External Approach (ICD-10-PCS; 2020-04-30)
PROC: 30233N1 Transfusion of Nonautologous Red Blood Cells into Peripheral Vein, Percutaneous Approach (ICD-10-PCS; 2020-05-03)
DX: A41.89 Other specified sepsis (principal); U07.1 COVID-19; J96.01 Acute respiratory failure with hypoxia; J12.82 Pneumonia due to coronavirus disease 2019; N17.0 Acute kidney failure with tubular necrosis; R65.21 Severe sepsis with septic shock; J45.902 Unspecified asthma with status asthmaticus; E44.0 Moderate protein-calorie malnutrition; D84.9 Immunodeficiency, unspecified; E87.0 Hyperosmolality and hypernatremia; I82.621 Acute embolism and thrombosis of deep veins of right upper extremity; Z99.11 Dependence on respirator [ventilator] status; D68.59 Other primary thrombophilia; J01.00 Acute maxillary sinusitis, unspecified; E78.5 Hyperlipidemia, unspecified; D63.8 Anemia in other chronic diseases classified elsewhere; E87.6 Hypokalemia; F41.9 Anxiety disorder, unspecified; I80.9 Phlebitis and thrombophlebitis of unspecified site; E55.9 Vitamin D deficiency, unspecified; B37.9 Candidiasis, unspecified; I12.9 Hypertensive chronic kidney disease with stage 1 through stage 4 chronic kidney disease, or unspecified chronic kidney disease; K29.70 Gastritis, unspecified, without bleeding; K81.9 Cholecystitis, unspecified; R31.9 Hematuria, unspecified; N18.2 Chronic kidney disease, stage 2 (mild); Z82.5 Family history of asthma and other chronic lower respiratory diseases; Z86.72 Personal history of thrombophlebitis; Z90.49 Acquired absence of other specified parts of digestive tract
CPT/HCPCS: 36415; 36569; 36600; 71045; 71275; 76700; 76705; 80048; 80053; 80061; 81001; 82270; 82306; 82728; 82805; 82962; 83036; 83605; 83615; 83735; 84100; 84132; 84484; 85007; 85014; 85018; 85025; 85027; 85379; 85610; 85652; 85730; 86141; 86850; 86900; 86901; 86920; 86922; 87040; 87070; 87077; 87081; 87086; 87088; 87205; 87426; 92610; 93005; 93306; 93971; 94002; 94003; 94640; 94660; 96365; 96366; 96367; 96372; 96375; 96376; A4605; G0378; J0330; J0690; J0696; J1100; J1450; J1956; J2001; J2185; J2250; J2405; J2543; J2704; J3430; J3480; J3490; J7060